=== PATIENT | female | born 1955 | race Caucasian/White ===

== ENCOUNTER 2017-05-29 16:01 | Inpatient (IN) | payer MEDICARE, MEDICAID ==
[~2017-05-29] VITALS: Ht 152.4 cm; Wt 173.0 kg
[~2017-05-29 16:01] MED LIST: AMLO1TAB53 PO; ATOR80TA PO; BUPR150T6 PO; COR3.125T PO; FERR325T28 PO; FLUO15OI15 TP; HYDR-3972 PO; INSU100C4 SQ; LANTUS SUBCUT; LEVO200T43 PO; OMEP-84 PO
[2017-05-29] MEDS ORDERED: methylPREDNISolone sod succ 125mg/2ml vial IV ONE (16:40)
[2017-05-29] MEDS ORDERED: normal saline 1000ML IV soln IVB ONE (16:40)
[2017-05-29] MEDS ORDERED: albuterol 2.5 MG/3 ML nebule CONTNEB PRN (16:40)
[2017-05-29 17:13] LABS: BASOPHILS % (AUTO) 0.2 % (0-1); EOSINOPHILS # (AUTO) 0.3 X10'3 (0-0.9); EOSINOPHILS % (AUTO) 3.4 % (0-6); HEMATOCRIT 32.4 % (35.0-45.0); HEMOGLOBIN 10.4 g/dl (12.0-16.0); LYMPHOCYTES # (AUTO) 0.9 X10'3 (1.1-4.8); LYMPHOCYTES % (AUTO) 9.3 % (21-51); MEAN CORPUSCULAR HGB CONC 32.2 % (33.0-36.5); MEAN CORPUSCULAR VOLUME 86.9 FL (78-98); MONOCYTES # (AUTO) 0.5 X10'3 (0-0.9); MONOCYTES % (AUTO) 5.2 % (2-12); NEUTROPHILS # (AUTO) 7.7 X10'3 (1.8-7.7); NEUTROPHILS % (AUTO) 81.9 % (42-75); PLATELET COUNT 240 X10'3 (140-440); RED BLOOD COUNT 3.73 X10'6 (4.20-5.60); RED CELL DISTRIBUTION WIDTH 17.2 % (11.5-14.5); WHITE BLOOD COUNT 9.5 X10'3 (4.5-11.0)
[2017-05-29 17:26] LABS: ABG BASE EXCESS -0.4 mmol/L (-2.0-3.0); ABG HCO3 26.6 mmol/L (22.0-26.0); ABG OXYGEN SATURATION 93.5 % (95-98); ABG PCO2 (T) 54.8 mmHg (32.0-45.0); ABG PH (T) 7.304 (7.350-7.450); ABG PO2 (T) 75.2 mmHg (83-108); ALLEN'S TEST Positive; FLOW 3 L/min; FMetHb 0.3 % (0.3-1.12); FO2Hb 92.3 % (94-100); TOTAL HEMOGLOBIN 10.9 G/dl (12.0-16.0)
[2017-05-29 17:38] LABS: ALANINE AMINOTRANSFERASE 24 U/L (12-78); ALBUMIN 2.8 G/DL (3.4-5.0); ALBUMIN/GLOBULIN RATIO 0.5 (1.1-1.5); ALKALINE PHOSPHATASE 195 IU/L (46-116); ANION GAP 8 (8-16); ASPARTATE AMINO TRANSFERASE 13 U/L (10-37); BILIRUBIN,TOTAL 0.2 MG/DL (0.1-1.0); BLOOD UREA NITROGEN 57 MG/DL (7-18); BUN/CREATININE RATIO 17.3 (6.6-38.0); CALCIUM 9.2 MG/DL (8.5-10.1); CHLORIDE 106 MMOL/L (99-107); GLUCOSE 62 MG/DL (70-104); POTASSIUM 4.2 MMOL/L (3.5-5.1); SODIUM 144 MMOL/L (135-145); TOTAL PROTEIN 8.7 G/DL (6.4-8.2); eGFR 14 ML/MIN
[2017-05-29] MEDS ORDERED: MESSAGE TO PHARMACY PO ONE (18:25)
[2017-05-29] MEDS ORDERED: magnesium Cl slow-release 64mg tablet PO PRN (18:25)
[2017-05-29] MEDS ORDERED: dextrose 50%-water 50ml dispensing syringe IV PRN ×2 (18:25)
[2017-05-29] MEDS ORDERED: fluocinonide 0.05% 15gm ointment TP PRN (18:25)
[2017-05-29] MEDS ORDERED: potassium Cl 20 mEq SR tablet PO PRN ×2 (18:25)
[2017-05-29] MEDS ORDERED: magnesium 4gm in 100ml NS 100 ML IV PRN (18:25)
[2017-05-29] MEDS ORDERED: furosemide 10 MG/1 ML 10ml inj IV ONE (18:25)
[2017-05-29] MEDS ORDERED: glucagon, human recombinant 1mg kit SUBCUT PRN (18:25)
[2017-05-29] MEDS ORDERED: acetaminophen 325mg tablet PO PRN ×2 (18:25)
[2017-05-29] MEDS ORDERED: morphine sulfate 8 MG/ML SYRINGE IV PRN ×2 (18:25)
[2017-05-29] MEDS ORDERED: mag hydrox/Alum hydrox/simeth 30ml oral suspension PO PRN (18:25)
[2017-05-29] MEDS ORDERED: metoclopramide 5 mg/ml inj IV PRN (18:25)
[2017-05-29] MEDS ORDERED: HYDROmorphone 1 mg/ml syringe IV PRN (18:25)
[2017-05-29] MEDS ORDERED: potassium Cl 40MEQ/NS 500ml 500 ML IV PRN ×2 (18:25)
[2017-05-29] MEDS ORDERED: dextrose ORAL solution 15 GM/59 ML bottle PO PRN ×2 (18:25)
[2017-05-29] MEDS ORDERED: magnesium 2GM in 50ml NS 50 ML IV PRN (18:25)
[2017-05-29] MEDS ORDERED: ondansetron/PF 4mg/2ml inj IV PRN (18:25)
[2017-05-29] MEDS: methylPREDNISolone sod succ 125mg/2ml vial IV SCH (20:21)
[2017-05-29] MEDS: carVEDilol 3.125mg tablet PO SCH (20:24)
[2017-05-29] MEDS: heparin, porcine 5000 units/ml vial SQ SCH (20:27)
[2017-05-29] MEDS: docusate sod 100mg capsule PO SCH (20:32)
[2017-05-29] MEDS ORDERED: temazepam 15mg capsule PO PRN (21:00)
[2017-05-29] MEDS: Insulin Detemir pen SQ SCH (21:00)
[2017-05-29] MEDS ORDERED: insulin glargine (Lantus) pen - multi-dose SQ SCH (21:00)
[2017-05-29] MEDS: atorvastatin 20mg tablet PO SCH (21:24)
[2017-05-29 23:00] VITALS: BP 158/69
[2017-05-30 03:00] VITALS: BP 175/72
[2017-05-30] MEDS: cloNIDine 0.1 mg tablet PO SCH ×2 (03:49→22:27)
[2017-05-30] MEDS: methylPREDNISolone sod succ 125mg/2ml vial IV SCH ×4 (03:49→19:10)
[2017-05-30 06:00] VITALS: BP 160/61
[2017-05-30 06:33] LABS: BASOPHILS % (AUTO) 0 % (0-1); EOSINOPHILS % (AUTO) 0 % (0-6); HEMATOCRIT 29.7 % (35.0-45.0); HEMOGLOBIN 9.3 g/dl (12.0-16.0); LYMPHOCYTES # (AUTO) 0.3 X10'3 (1.1-4.8); LYMPHOCYTES % (AUTO) 4.7 % (21-51); MEAN CORPUSCULAR HEMOGLOBIN 27.4 PG (27.0-31.0); MEAN CORPUSCULAR HGB CONC 31.4 % (33.0-36.5); MEAN CORPUSCULAR VOLUME 87.3 FL (78-98); MEAN PLATELET VOLUME 8.4 FL (7.4-10.4); MONOCYTES % (AUTO) 0.2 % (2-12); NEUTROPHILS % (AUTO) 95.1 % (42-75); PLATELET COUNT 210 X10'3 (140-440); RED BLOOD COUNT 3.41 X10'6 (4.20-5.60); RED CELL DISTRIBUTION WIDTH 17.2 % (11.5-14.5); WHITE BLOOD COUNT 7.3 X10'3 (4.5-11.0)
[2017-05-30 07:01] LABS: ALBUMIN 2.3 G/DL (3.4-5.0); ANION GAP 9 (8-16); BLOOD UREA NITROGEN 57 MG/DL (7-18); BUN/CREATININE RATIO 17.5 (6.6-38.0); CALCIUM 8.7 MG/DL (8.5-10.1); CHLORIDE 109 MMOL/L (99-107); CREATININE 3.25 MG/DL (0.40-0.90); GLUCOSE 181 MG/DL (70-104); MAGNESIUM 2.2 MG/DL (1.5-2.4); POTASSIUM 4.8 MMOL/L (3.5-5.1); SODIUM 146 MMOL/L (135-145); TOTAL CARBON DIOXIDE 27.8 MMOL/L (24-32); eGFR 15 ML/MIN
[2017-05-30] MEDS: buPROPion SR 150mg tablet PO SCH (07:20)
[2017-05-30] MEDS: levoTHYROXINE 100mcg tablet PO SCH (07:20)
[2017-05-30] MEDS: docusate sod 100mg capsule PO SCH ×2 (07:20→19:10)
[2017-05-30] MEDS: amLODIPine 5mg tablet PO SCH (07:20)
[2017-05-30] MEDS: HYDROchlorothiazide 25mg tablet PO SCH (07:21)
[2017-05-30] MEDS: pantoprazole 40mg Tablet.DR PO SCH (07:22)
[2017-05-30] MEDS: carVEDilol 3.125mg tablet PO SCH ×2 (07:22→19:10)
[2017-05-30] MEDS: ferrous sulfate 325mg tablet PO SCH (07:22)
[2017-05-30] MEDS: heparin, porcine 5000 units/ml vial SQ SCH ×2 (07:23→19:08)
[2017-05-30] MEDS: K and/or MAG REPLACEMENT MC SCH (07:23)
[2017-05-30] MEDS ORDERED: INSULIN ASPART 30 UNIT SQ SCH (08:00)
[2017-05-30] MEDS ORDERED: non-formulary drug (Amlodipine/Valsartan/Hctz (Exforge Hct 10-320-25 Mg Tab) 1 EACH) PO SCH (08:00)
[2017-05-30 11:00] VITALS: BP 170/65
[2017-05-30] MEDS: insulin Lispro (HumaLOG) vial - multi-dose SQ SCH ×3 (13:08→22:27)
[2017-05-30 15:00] VITALS: BP 163/63
[2017-05-30 19:00] VITALS: BP 167/62
[2017-05-30] MEDS: albuterol 2.5 MG/3 ML nebule NEB PRN (19:49)
[2017-05-30] MEDS: atorvastatin 20mg tablet PO SCH (22:17)
[2017-05-30] MEDS: Insulin Detemir pen SQ SCH (22:24)
[2017-05-30 23:00] VITALS: BP 167/67
[2017-05-31 03:00] VITALS: BP 166/71
[2017-05-31] MEDS: methylPREDNISolone sod succ 125mg/2ml vial IV SCH ×4 (03:06→19:48)
[2017-05-31 06:04] LABS: BASOPHILS % (AUTO) 0 % (0-1); EOSINOPHILS % (AUTO) 0.6 % (0-6); HEMATOCRIT 28.3 % (35.0-45.0); LYMPHOCYTES # (AUTO) 0.3 X10'3 (1.1-4.8); LYMPHOCYTES % (AUTO) 7.4 % (21-51); MEAN CORPUSCULAR HEMOGLOBIN 27.7 PG (27.0-31.0); MEAN CORPUSCULAR HGB CONC 31.7 % (33.0-36.5); MEAN CORPUSCULAR VOLUME 87.5 FL (78-98); MEAN PLATELET VOLUME 8.5 FL (7.4-10.4); MONOCYTES # (AUTO) 0.1 X10'3 (0-0.9); MONOCYTES % (AUTO) 2.9 % (2-12); NEUTROPHILS # (AUTO) 4.1 X10'3 (1.8-7.7); NEUTROPHILS % (AUTO) 89.1 % (42-75); PLATELET COUNT 195 X10'3 (140-440); RED BLOOD COUNT 3.24 X10'6 (4.20-5.60); RED CELL DISTRIBUTION WIDTH 17.1 % (11.5-14.5); WHITE BLOOD COUNT 4.6 X10'3 (4.5-11.0)
[2017-05-31 06:21] LABS: ALBUMIN 2.2 G/DL (3.4-5.0); ANION GAP 5 (8-16); BLOOD UREA NITROGEN 62 MG/DL (7-18); BUN/CREATININE RATIO 19.1 (6.6-38.0); CALCIUM 8.3 MG/DL (8.5-10.1); CHLORIDE 109 MMOL/L (99-107); CREATININE 3.24 MG/DL (0.40-0.90); GLUCOSE 256 MG/DL (70-104); MAGNESIUM 2.3 MG/DL (1.5-2.4); POTASSIUM 4.7 MMOL/L (3.5-5.1); SODIUM 144 MMOL/L (135-145); TOTAL CARBON DIOXIDE 30.5 MMOL/L (24-32); eGFR 15 ML/MIN
[2017-05-31 07:00] VITALS: BP 165/70
[2017-05-31] MEDS: cloNIDine 0.1 mg tablet PO SCH ×2 (07:07→19:48)
[2017-05-31] MEDS: carVEDilol 3.125mg tablet PO SCH ×2 (07:07→20:00)
[2017-05-31] MEDS: heparin, porcine 5000 units/ml vial SQ SCH ×2 (07:20→19:48)
[2017-05-31] MEDS: docusate sod 100mg capsule PO SCH ×2 (07:20→19:48)
[2017-05-31] MEDS: amLODIPine 5mg tablet PO SCH (07:21)
[2017-05-31] MEDS: HYDROchlorothiazide 25mg tablet PO SCH (07:21)
[2017-05-31] MEDS: ferrous sulfate 325mg tablet PO SCH (07:30)
[2017-05-31] MEDS: pantoprazole 40mg Tablet.DR PO SCH (07:30)
[2017-05-31] MEDS: buPROPion SR 150mg tablet PO SCH (07:30)
[2017-05-31] MEDS: HYDROcodone/acetaminophen 5mg/325mg tablet PO PRN ×3 (07:31→21:03)
[2017-05-31] MEDS: levoTHYROXINE 100mcg tablet PO SCH (07:31)
[2017-05-31] MEDS: K and/or MAG REPLACEMENT MC SCH (08:00)
[2017-05-31] MEDS: insulin Lispro (HumaLOG) vial - multi-dose SQ SCH ×3 (09:02→18:45)
[2017-05-31 11:00] VITALS: BP 179/72
[2017-05-31 15:00] VITALS: BP 127/61
[2017-05-31 19:00] VITALS: BP 166/68
[2017-05-31] MEDS: albuterol 2.5 MG/3 ML nebule NEB PRN (20:40)
[2017-05-31] MEDS ORDERED: guaiFENesin/DM oral syrup 5 ML CUP PO PRN (20:55)
[2017-05-31] MEDS: atorvastatin 20mg tablet PO SCH (20:58)
[2017-05-31] MEDS: Insulin Detemir pen SQ SCH (21:02)
[2017-05-31 23:00] VITALS: BP 160/56
[2017-06-01] MEDS: HYDROcodone/acetaminophen 5mg/325mg tablet PO PRN (00:07)
[2017-06-01] MEDS: methylPREDNISolone sod succ 125mg/2ml vial IV SCH ×4 (01:42→19:28)
[2017-06-01 03:00] VITALS: BP 143/54
[2017-06-01 06:00] VITALS: BP 172/71
[2017-06-01 06:09] LABS: BASOPHILS % (AUTO) 0 % (0-1); EOSINOPHILS # (AUTO) 0.1 X10'3 (0-0.9); EOSINOPHILS % (AUTO) 1.2 % (0-6); HEMOGLOBIN 8.8 g/dl (12.0-16.0); LYMPHOCYTES # (AUTO) 0.3 X10'3 (1.1-4.8); LYMPHOCYTES % (AUTO) 4.9 % (21-51); MEAN CORPUSCULAR HEMOGLOBIN 27.4 PG (27.0-31.0); MEAN CORPUSCULAR HGB CONC 31.6 % (33.0-36.5); MEAN CORPUSCULAR VOLUME 86.8 FL (78-98); MEAN PLATELET VOLUME 8.5 FL (7.4-10.4); MONOCYTES # (AUTO) 0.1 X10'3 (0-0.9); MONOCYTES % (AUTO) 1.3 % (2-12); NEUTROPHILS # (AUTO) 5.5 X10'3 (1.8-7.7); NEUTROPHILS % (AUTO) 92.6 % (42-75); PLATELET COUNT 192 X10'3 (140-440); RED BLOOD COUNT 3.22 X10'6 (4.20-5.60); RED CELL DISTRIBUTION WIDTH 17.2 % (11.5-14.5); WHITE BLOOD COUNT 5.9 X10'3 (4.5-11.0)
[2017-06-01 06:32] LABS: ALBUMIN 2.2 G/DL (3.4-5.0); ANION GAP 7 (8-16); BLOOD UREA NITROGEN 71 MG/DL (7-18); BUN/CREATININE RATIO 23.6 (6.6-38.0); CALCIUM 8.7 MG/DL (8.5-10.1); CHLORIDE 109 MMOL/L (99-107); CREATININE 3.01 MG/DL (0.40-0.90); GLUCOSE 240 MG/DL (70-104); MAGNESIUM 2.6 MG/DL (1.5-2.4); POTASSIUM 5.1 MMOL/L (3.5-5.1); SODIUM 145 MMOL/L (135-145); eGFR 16 ML/MIN
[2017-06-01] MEDS: carVEDilol 3.125mg tablet PO SCH ×2 (08:00→19:30)
[2017-06-01] MEDS: K and/or MAG REPLACEMENT MC SCH (08:00)
[2017-06-01] MEDS: insulin Lispro (HumaLOG) vial - multi-dose SQ SCH ×4 (08:49→21:02)
[2017-06-01] MEDS: mineral oil/petrolatum, white cream 113gm jar TP SCH ×2 (08:51→20:00)
[2017-06-01] MEDS: heparin, porcine 5000 units/ml vial SQ SCH ×2 (08:51→19:28)
[2017-06-01] MEDS: amLODIPine 5mg tablet PO SCH (08:52)
[2017-06-01] MEDS: docusate sod 100mg capsule PO SCH ×2 (08:53→19:28)
[2017-06-01] MEDS: ferrous sulfate 325mg tablet PO SCH (08:53)
[2017-06-01] MEDS: cloNIDine 0.1 mg tablet PO SCH ×2 (08:53→19:29)
[2017-06-01] MEDS: buPROPion SR 150mg tablet PO SCH (08:53)
[2017-06-01] MEDS: levoTHYROXINE 100mcg tablet PO SCH (08:54)
[2017-06-01] MEDS: HYDROchlorothiazide 25mg tablet PO SCH (08:58)
[2017-06-01] MEDS: HYDROcodone/acetaminophen 10/325mg tab PO PRN ×2 (08:58→19:29)
[2017-06-01] MEDS: pantoprazole 40mg Tablet.DR PO SCH (09:00)
[2017-06-01 11:00] VITALS: BP 158/69
[2017-06-01 15:00] VITALS: BP 183/74
[2017-06-01 19:00] VITALS: BP 174/86
[2017-06-01] MEDS: magnesium hydroxide 30ml (MOM) UD suspension PO PRN (19:29)
[2017-06-01] MEDS: atorvastatin 20mg tablet PO SCH (20:59)
[2017-06-01] MEDS: Insulin Detemir pen SQ SCH (21:03)
[2017-06-01 23:00] VITALS: BP 153/74
[2017-06-02] MEDS: methylPREDNISolone sod succ 125mg/2ml vial IV SCH ×4 (01:48→21:29)
[2017-06-02 03:00] VITALS: BP 128/60
[2017-06-02 05:51] LABS: BASOPHILS % (AUTO) 0.1 % (0-1); EOSINOPHILS # (AUTO) 0.1 X10'3 (0-0.9); EOSINOPHILS % (AUTO) 1.2 % (0-6); HEMATOCRIT 29.8 % (35.0-45.0); HEMOGLOBIN 9.5 g/dl (12.0-16.0); LYMPHOCYTES # (AUTO) 0.2 X10'3 (1.1-4.8); LYMPHOCYTES % (AUTO) 3.8 % (21-51); MEAN CORPUSCULAR HEMOGLOBIN 27.7 PG (27.0-31.0); MEAN CORPUSCULAR HGB CONC 31.9 % (33.0-36.5); MEAN CORPUSCULAR VOLUME 86.9 FL (78-98); MEAN PLATELET VOLUME 8.6 FL (7.4-10.4); MONOCYTES # (AUTO) 0.1 X10'3 (0-0.9); NEUTROPHILS # (AUTO) 5.3 X10'3 (1.8-7.7); NEUTROPHILS % (AUTO) 93.9 % (42-75); PLATELET COUNT 186 X10'3 (140-440); RED BLOOD COUNT 3.42 X10'6 (4.20-5.60); RED CELL DISTRIBUTION WIDTH 16.9 % (11.5-14.5); WHITE BLOOD COUNT 5.7 X10'3 (4.5-11.0)
[2017-06-02 06:00] VITALS: BP 181/79
[2017-06-02 06:23] LABS: ALBUMIN 2.2 G/DL (3.4-5.0); ANION GAP 6 (8-16); BLOOD UREA NITROGEN 79 MG/DL (7-18); BUN/CREATININE RATIO 26.3 (6.6-38.0); CALCIUM 8.6 MG/DL (8.5-10.1); CHLORIDE 108 MMOL/L (99-107); GLUCOSE 239 MG/DL (70-104); MAGNESIUM 2.8 MG/DL (1.5-2.4); POTASSIUM 5.2 MMOL/L (3.5-5.1); SODIUM 144 MMOL/L (135-145); TOTAL CARBON DIOXIDE 29.9 MMOL/L (24-32); eGFR 16 ML/MIN
[2017-06-02] MEDS: levoTHYROXINE 100mcg tablet PO SCH (07:40)
[2017-06-02] MEDS: amLODIPine 5mg tablet PO SCH (07:41)
[2017-06-02] MEDS: HYDROchlorothiazide 25mg tablet PO SCH (07:41)
[2017-06-02] MEDS: ferrous sulfate 325mg tablet PO SCH (07:42)
[2017-06-02] MEDS: docusate sod 100mg capsule PO SCH ×2 (07:42→21:31)
[2017-06-02] MEDS: pantoprazole 40mg Tablet.DR PO SCH (07:42)
[2017-06-02] MEDS: buPROPion SR 150mg tablet PO SCH (07:43)
[2017-06-02] MEDS: heparin, porcine 5000 units/ml vial SQ SCH ×2 (07:43→21:31)
[2017-06-02] MEDS: cloNIDine 0.1 mg tablet PO SCH ×2 (07:44→21:30)
[2017-06-02] MEDS: K and/or MAG REPLACEMENT MC SCH (08:00)
[2017-06-02] MEDS: mineral oil/petrolatum, white cream 113gm jar TP SCH ×2 (08:00→21:31)
[2017-06-02] MEDS: carVEDilol 3.125mg tablet PO SCH ×2 (08:00→21:31)
[2017-06-02] MEDS: insulin Lispro (HumaLOG) vial - multi-dose SQ SCH ×3 (09:47→19:25)
[2017-06-02 11:00] VITALS: BP 153/71
[2017-06-02 15:00] VITALS: BP 199/76
[2017-06-02 18:00] VITALS: BP 166/67
[2017-06-02] MEDS: atorvastatin 20mg tablet PO SCH (21:31)
[2017-06-02] MEDS: Insulin Detemir pen SQ SCH (21:42)
[2017-06-02 22:00] VITALS: BP 175/73
[2017-06-02] MEDS: HYDROcodone/acetaminophen 5mg/325mg tablet PO PRN (22:42)
[2017-06-02] MEDS: hydrALAZINE 20mg/ml inj. IV PRN (22:42)
[2017-06-03] MEDS: methylPREDNISolone sod succ 125mg/2ml vial IV SCH ×3 (01:59→15:39)
[2017-06-03 02:00] VITALS: BP 135/60
[2017-06-03 04:57] LABS: BASOPHILS % (AUTO) 0.1 % (0-1); EOSINOPHILS % (AUTO) 0.8 % (0-6); HEMATOCRIT 28.8 % (35.0-45.0); HEMOGLOBIN 9.1 g/dl (12.0-16.0); LYMPHOCYTES # (AUTO) 0.2 X10'3 (1.1-4.8); LYMPHOCYTES % (AUTO) 2.9 % (21-51); MEAN CORPUSCULAR HEMOGLOBIN 27.6 PG (27.0-31.0); MEAN CORPUSCULAR HGB CONC 31.7 % (33.0-36.5); MEAN CORPUSCULAR VOLUME 87.3 FL (78-98); MEAN PLATELET VOLUME 8.8 FL (7.4-10.4); MONOCYTES % (AUTO) 0.7 % (2-12); NEUTROPHILS # (AUTO) 5.7 X10'3 (1.8-7.7); NEUTROPHILS % (AUTO) 95.5 % (42-75); PLATELET COUNT 179 X10'3 (140-440); RED CELL DISTRIBUTION WIDTH 17.4 % (11.5-14.5)
[2017-06-03 05:11] LABS: ALBUMIN 2.1 G/DL (3.4-5.0); ANION GAP 7 (8-16); BLOOD UREA NITROGEN 85 MG/DL (7-18); BUN/CREATININE RATIO 29.7 (6.6-38.0); CALCIUM 8.5 MG/DL (8.5-10.1); CHLORIDE 108 MMOL/L (99-107); CREATININE 2.86 MG/DL (0.40-0.90); GLUCOSE 238 MG/DL (70-104); POTASSIUM 5.1 MMOL/L (3.5-5.1); SODIUM 145 MMOL/L (135-145); eGFR 17 ML/MIN
[2017-06-03 06:00] VITALS: BP 147/65
[2017-06-03] MEDS: amLODIPine 5mg tablet PO SCH (07:42)
[2017-06-03] MEDS: HYDROchlorothiazide 25mg tablet PO SCH (07:42)
[2017-06-03] MEDS: ferrous sulfate 325mg tablet PO SCH (07:43)
[2017-06-03] MEDS: buPROPion SR 150mg tablet PO SCH (07:43)
[2017-06-03] MEDS: pantoprazole 40mg Tablet.DR PO SCH (07:43)
[2017-06-03] MEDS: cloNIDine 0.1 mg tablet PO SCH ×2 (07:44→19:26)
[2017-06-03] MEDS: levoTHYROXINE 100mcg tablet PO SCH (07:44)
[2017-06-03] MEDS: docusate sod 100mg capsule PO SCH ×2 (07:45→19:26)
[2017-06-03] MEDS: carVEDilol 3.125mg tablet PO SCH ×2 (07:45→19:26)
[2017-06-03] MEDS: heparin, porcine 5000 units/ml vial SQ SCH ×2 (07:46→19:26)
[2017-06-03] MEDS: mineral oil/petrolatum, white cream 113gm jar TP SCH ×2 (07:47→19:29)
[2017-06-03] MEDS: K and/or MAG REPLACEMENT MC SCH (08:00)
[2017-06-03] MEDS: insulin Lispro (HumaLOG) vial - multi-dose SQ SCH ×4 (08:22→21:28)
[2017-06-03 11:00] VITALS: BP 149/80
[2017-06-03 15:30] VITALS: BP 190/84
[2017-06-03] MEDS: hydrALAZINE 20mg/ml inj. IV PRN (16:34)
[2017-06-03 18:00] VITALS: BP 177/68
[2017-06-03] MEDS ORDERED: insulin glargine (Lantus) pen - multi-dose SQ ONE (21:00)
[2017-06-03] MEDS: atorvastatin 20mg tablet PO SCH (21:30)
[2017-06-03] MEDS: insulin glargine (Lantus) pen - multi-dose SQ SCH (21:30)
[2017-06-03 22:00] VITALS: BP 169/58
[2017-06-04] VITALS (7 sets, daily range): BP systolic 104–182; BP diastolic 51–78
[2017-06-04] MEDS: methylPREDNISolone sod succ 125mg/2ml vial IV SCH ×3 (00:08→14:58)
[2017-06-04 05:34] LABS: BASOPHILS % (AUTO) 0 % (0-1); EOSINOPHILS # (AUTO) 0.1 X10'3 (0-0.9); EOSINOPHILS % (AUTO) 1.1 % (0-6); HEMATOCRIT 30.4 % (35.0-45.0); HEMOGLOBIN 9.7 g/dl (12.0-16.0); LYMPHOCYTES # (AUTO) 0.2 X10'3 (1.1-4.8); MEAN CORPUSCULAR HEMOGLOBIN 27.8 PG (27.0-31.0); MEAN CORPUSCULAR HGB CONC 31.9 % (33.0-36.5); MEAN CORPUSCULAR VOLUME 87.2 FL (78-98); MONOCYTES # (AUTO) 0.1 X10'3 (0-0.9); MONOCYTES % (AUTO) 1.7 % (2-12); NEUTROPHILS # (AUTO) 6.2 X10'3 (1.8-7.7); NEUTROPHILS % (AUTO) 94.2 % (42-75); PLATELET COUNT 164 X10'3 (140-440); RED BLOOD COUNT 3.48 X10'6 (4.20-5.60); RED CELL DISTRIBUTION WIDTH 17.2 % (11.5-14.5); WHITE BLOOD COUNT 6.6 X10'3 (4.5-11.0)
[2017-06-04 06:13] LABS: ALANINE AMINOTRANSFERASE 20 U/L (12-78); ALBUMIN 2.2 G/DL (3.4-5.0); ALBUMIN/GLOBULIN RATIO 0.5 (1.1-1.5); ALKALINE PHOSPHATASE 109 IU/L (46-116); ANION GAP 5 (8-16); ASPARTATE AMINO TRANSFERASE 8 U/L (10-37); BILIRUBIN,TOTAL 0.3 MG/DL (0.1-1.0); BLOOD UREA NITROGEN 94 MG/DL (7-18); CALCIUM 8.6 MG/DL (8.5-10.1); CHLORIDE 110 MMOL/L (99-107); CREATININE 2.94 MG/DL (0.40-0.90); GLUCOSE 171 MG/DL (70-104); SODIUM 146 MMOL/L (135-145); TOTAL CARBON DIOXIDE 31.1 MMOL/L (24-32); TOTAL PROTEIN 6.3 G/DL (6.4-8.2); eGFR 16 ML/MIN
[2017-06-04] MEDS: buPROPion SR 150mg tablet PO SCH (07:54)
[2017-06-04] MEDS: levoTHYROXINE 100mcg tablet PO SCH (07:54)
[2017-06-04] MEDS: docusate sod 100mg capsule PO SCH ×2 (07:55→19:40)
[2017-06-04] MEDS: ferrous sulfate 325mg tablet PO SCH (07:55)
[2017-06-04] MEDS: carVEDilol 3.125mg tablet PO SCH ×2 (07:56→19:40)
[2017-06-04] MEDS: amLODIPine 5mg tablet PO SCH (07:56)
[2017-06-04] MEDS: HYDROchlorothiazide 25mg tablet PO SCH (07:57)
[2017-06-04] MEDS: pantoprazole 40mg Tablet.DR PO SCH (07:57)
[2017-06-04] MEDS: cloNIDine 0.1 mg tablet PO SCH ×2 (07:57→19:40)
[2017-06-04] MEDS: heparin, porcine 5000 units/ml vial SQ SCH ×2 (07:58→19:40)
[2017-06-04] MEDS: K and/or MAG REPLACEMENT MC SCH (08:00)
[2017-06-04] MEDS: mineral oil/petrolatum, white cream 113gm jar TP SCH ×2 (08:06→19:40)
[2017-06-04] MEDS: HYDROcodone/acetaminophen 5mg/325mg tablet PO PRN ×2 (09:59→14:58)
[2017-06-04] MEDS: insulin Lispro (HumaLOG) vial - multi-dose SQ SCH ×3 (10:02→19:02)
[2017-06-04] MEDS ORDERED: PRED20TA PO (12:45)
[2017-06-04] MEDS: atorvastatin 20mg tablet PO SCH (20:44)
[2017-06-04] MEDS: insulin glargine (Lantus) pen - multi-dose SQ SCH (20:48)
[2017-06-04] MEDS: hydrALAZINE 20mg/ml inj. IV PRN (23:36)
[2017-06-05] MEDS: magnesium hydroxide 30ml (MOM) UD suspension PO PRN (01:02)
[2017-06-05 02:00] VITALS: BP 147/58
[2017-06-05 06:14] LABS: BASOPHILS % (AUTO) 0 % (0-1); EOSINOPHILS # (AUTO) 0.1 X10'3 (0-0.9); EOSINOPHILS % (AUTO) 1.4 % (0-6); HEMATOCRIT 31.1 % (35.0-45.0); HEMOGLOBIN 9.9 g/dl (12.0-16.0); LYMPHOCYTES # (AUTO) 0.4 X10'3 (1.1-4.8); LYMPHOCYTES % (AUTO) 5.7 % (21-51); MEAN CORPUSCULAR HEMOGLOBIN 27.8 PG (27.0-31.0); MEAN CORPUSCULAR HGB CONC 31.8 % (33.0-36.5); MEAN CORPUSCULAR VOLUME 87.5 FL (78-98); MEAN PLATELET VOLUME 9.1 FL (7.4-10.4); MONOCYTES # (AUTO) 0.4 X10'3 (0-0.9); MONOCYTES % (AUTO) 5.6 % (2-12); NEUTROPHILS # (AUTO) 6.3 X10'3 (1.8-7.7); NEUTROPHILS % (AUTO) 87.3 % (42-75); PLATELET COUNT 169 X10'3 (140-440); RED BLOOD COUNT 3.55 X10'6 (4.20-5.60); RED CELL DISTRIBUTION WIDTH 17.6 % (11.5-14.5); WHITE BLOOD COUNT 7.2 X10'3 (4.5-11.0)
[2017-06-05 06:28] LABS: ALANINE AMINOTRANSFERASE 24 U/L (12-78); ALBUMIN 2.2 G/DL (3.4-5.0); ALBUMIN/GLOBULIN RATIO 0.6 (1.1-1.5); ALKALINE PHOSPHATASE 109 IU/L (46-116); ANION GAP 6 (8-16); ASPARTATE AMINO TRANSFERASE 13 U/L (10-37); BILIRUBIN,TOTAL 0.3 MG/DL (0.1-1.0); BLOOD UREA NITROGEN 96 MG/DL (7-18); CALCIUM 8.7 MG/DL (8.5-10.1); CHLORIDE 109 MMOL/L (99-107); CREATININE 2.82 MG/DL (0.40-0.90); GLUCOSE 172 MG/DL (70-104); MAGNESIUM 3.1 MG/DL (1.5-2.4); POTASSIUM 5.3 MMOL/L (3.5-5.1); SODIUM 145 MMOL/L (135-145); TOTAL CARBON DIOXIDE 30.1 MMOL/L (24-32); TOTAL PROTEIN 6.2 G/DL (6.4-8.2); eGFR 17 ML/MIN
[2017-06-05 07:05] VITALS: BP 165/64
[2017-06-05] MEDS ORDERED: methylPREDNISolone sod succ 125mg/2ml vial IV SCH (08:00)
[2017-06-05] MEDS: K and/or MAG REPLACEMENT MC SCH (08:00)
[2017-06-05] MEDS: docusate sod 100mg capsule PO SCH (08:00)
[2017-06-05] MEDS: insulin Lispro (HumaLOG) vial - multi-dose SQ SCH ×2 (09:27→13:24)
[2017-06-05] MEDS: carVEDilol 3.125mg tablet PO SCH (09:31)
[2017-06-05] MEDS: buPROPion SR 150mg tablet PO SCH (09:31)
[2017-06-05] MEDS: cloNIDine 0.1 mg tablet PO SCH (09:31)
[2017-06-05] MEDS: amLODIPine 5mg tablet PO SCH (09:42)
[2017-06-05] MEDS: HYDROchlorothiazide 25mg tablet PO SCH (09:42)
[2017-06-05] MEDS: ferrous sulfate 325mg tablet PO SCH (09:43)
[2017-06-05] MEDS: HYDROcodone/acetaminophen 5mg/325mg tablet PO PRN (09:43)
[2017-06-05] MEDS: heparin, porcine 5000 units/ml vial SQ SCH (09:43)
[2017-06-05] MEDS: mineral oil/petrolatum, white cream 113gm jar TP SCH (09:45)
[2017-06-05] MEDS: pantoprazole 40mg Tablet.DR PO SCH (09:49)
[2017-06-05] MEDS: levoTHYROXINE 100mcg tablet PO SCH (09:49)
[2017-06-05 11:00] VITALS: BP 203/81
[2017-06-05] MEDS: hydrALAZINE 20mg/ml inj. IV PRN (13:27)
[2017-06-05 15:00] VITALS: BP 193/76
== END 2017-06-05 16:00 | DRG 291 ==
LOC: ER 16:02 → ED HOLD 18:29 → PCU 3S 21:54
PROVIDERS: ADMIT Internal Medicine; ATTEND Family Medicine
PROC: 5A09357 Assistance with Respiratory Ventilation, Less than 24 Consecutive Hours, Continuous Positive Airway Pressure (ICD-10-PCS; principal; 2017-05-30)
PROC: 5A09357 Assistance with Respiratory Ventilation, Less than 24 Consecutive Hours, Continuous Positive Airway Pressure (ICD-10-PCS; 2017-05-31)
DX: I13.0 Hypertensive heart and chronic kidney disease with heart failure and stage 1 through stage 4 chronic kidney disease, or unspecified chronic kidney disease (principal); I50.43 Acute on chronic combined systolic (congestive) and diastolic (congestive) heart failure; J96.01 Acute respiratory failure with hypoxia; E43 Unspecified severe protein-calorie malnutrition; E11.22 Type 2 diabetes mellitus with diabetic chronic kidney disease; N17.9 Acute kidney failure, unspecified; L03.115 Cellulitis of right lower limb; E66.01 Morbid (severe) obesity due to excess calories; N18.4 Chronic kidney disease, stage 4 (severe); I42.0 Dilated cardiomyopathy; G83.9 Paralytic syndrome, unspecified; J44.1 Chronic obstructive pulmonary disease with (acute) exacerbation; Z68.45 Body mass index [BMI] 70 or greater, adult; D63.8 Anemia in other chronic diseases classified elsewhere; E03.9 Hypothyroidism, unspecified; F32.9 Major depressive disorder, single episode, unspecified; F41.9 Anxiety disorder, unspecified; G47.33 Obstructive sleep apnea (adult) (pediatric); I89.0 Lymphedema, not elsewhere classified; Z99.81 Dependence on supplemental oxygen; Z90.49 Acquired absence of other specified parts of digestive tract; Z79.4 Long term (current) use of insulin; Z79.899 Other long term (current) drug therapy; Z88.8 Allergy status to other drugs, medicaments and biological substances; Z85.850 Personal history of malignant neoplasm of thyroid; Z80.0 Family history of malignant neoplasm of digestive organs
CPT/HCPCS: 36415; 36600; 71010; 80048; 80053; 82803; 82948; 83036; 83605; 83735; 83880; 84484; 85018; 85025; 87040; 87070; 93306; 94640; 94660; 94760; 96374; 97110; 97116; 97161; 97530; 99285; A4620; A4649; A6213; A6449; C1758; J0360; J1644; J1815; J1940; J2930; J7030

== ENCOUNTER 2017-08-13 16:56 | Inpatient (IN) | payer MEDICARE, MEDICAID ==
[~2017-08-13] VITALS: Ht 152.4 cm; Wt 160.0 kg
[2017-08-13] MEDS ORDERED: normal saline 1000ML IV soln IV ONE (17:05)
[2017-08-13 17:33] LABS: BASOPHILS % (AUTO) 0.2 % (0-1); EOSINOPHILS # (AUTO) 0.1 X10'3 (0-0.9); EOSINOPHILS % (AUTO) 1.4 % (0-6); HEMATOCRIT 37.5 % (35.0-45.0); HEMOGLOBIN 12.5 g/dl (12.0-16.0); LYMPHOCYTES # (AUTO) 0.8 X10'3 (1.1-4.8); LYMPHOCYTES % (AUTO) 10.3 % (21-51); MEAN CORPUSCULAR HEMOGLOBIN 28.7 PG (27.0-31.0); MEAN CORPUSCULAR HGB CONC 33.4 % (33.0-36.5); MEAN CORPUSCULAR VOLUME 85.9 FL (78-98); MEAN PLATELET VOLUME 7.7 FL (7.4-10.4); MONOCYTES # (AUTO) 0.3 X10'3 (0-0.9); MONOCYTES % (AUTO) 4.2 % (2-12); NEUTROPHILS # (AUTO) 6.7 X10'3 (1.8-7.7); NEUTROPHILS % (AUTO) 83.9 % (42-75); PLATELET COUNT 164 X10'3 (140-440); RED BLOOD COUNT 4.37 X10'6 (4.20-5.60); RED CELL DISTRIBUTION WIDTH 15.8 % (11.5-14.5)
[2017-08-13 17:41] LABS: INR 0.9 INR; PROTHROMBIN TIME 9.7 SECONDS (9.0-12.0)
[2017-08-13 17:48] LABS: ALANINE AMINOTRANSFERASE 39 U/L (12-78); ALBUMIN 2.8 G/DL (3.4-5.0); ALBUMIN/GLOBULIN RATIO 0.7 (1.1-1.5); ALKALINE PHOSPHATASE 102 IU/L (46-116); ANION GAP 10 (8-16); ASPARTATE AMINO TRANSFERASE 14 U/L (10-37); BILIRUBIN,TOTAL 0.4 MG/DL (0.1-1.0); BLOOD UREA NITROGEN 89 MG/DL (7-18); BUN/CREATININE RATIO 29.1 (6.6-38.0); CALCIUM 7.8 MG/DL (8.5-10.1); CHLORIDE 98 MMOL/L (99-107); CREATININE 3.06 MG/DL (0.40-0.90); GLUCOSE 99 MG/DL (70-104); SODIUM 142 MMOL/L (135-145); TOTAL CARBON DIOXIDE 34.1 MMOL/L (24-32); eGFR 16 ML/MIN
[2017-08-13] MEDS ORDERED: ipratropium/albuterol 3ml nebule NEB ONE (17:55)
[2017-08-13] MEDS ORDERED: methylPREDNISolone sod succ 125mg/2ml vial IV ONE (17:55)
[2017-08-13] MEDS ORDERED: vancomycin inj 1,000 MG in normal saline 250ml IV soln 250 ML IV STA (17:57)
[2017-08-13] MEDS ORDERED: vancomycin/NS 1 GM ADD-VANTAGE 250 ML X 1 DOSE IV ONE (18:00)
[2017-08-13 18:15] LABS: ABG BASE EXCESS 6.7 mmol/L (-2.0-3.0); ABG HCO3 32.8 mmol/L (22.0-26.0); ABG OXYGEN SATURATION 97.3 % (95-98); ABG PCO2 (T) 53.1 mmHg (32.0-45.0); ABG PH (T) 7.408 (7.350-7.450); ABG PO2 (T) 104.9 mmHg (83-108); FLOW 5 L/min; FMetHb 0.3 % (0.3-1.12); PATIENT TEMPERATURE 36.8; RESPIRATORY RATE (OBSERVED) 22 b/min; TOTAL HEMOGLOBIN 12.7 G/dl (12.0-16.0)
[2017-08-13 18:16] LABS: CLARITY,URINE CLEAR (Clear); COLOR,URINE YELLOW (Yellow); GLUCOSE, URINE NEGATIVE (Neg); KETONES,URINE NEGATIVE (Neg); LEUKOCYTE ESTERASE ,URINE NEGATIVE (Neg); NITRITES, URINE NEGATIVE (Neg); OCCULT BLOOD,URINE SMALL (Neg); PH,URINE 5.5 (4.8-8.0); PROTEIN,URINE >=300 mg/dl (Neg); UROBILINOGEN,URINE 0.2 E.U/dL (0.2-1.0)
[2017-08-13 18:21] LABS: UA COLLECTION TYPE FOLEY CATH
[2017-08-13 18:27] LABS: BACTERIA,URINE 4+ /HPF (Neg); SQUAMOUS EPITHELIAL CELL,UR NONE SEEN /LPF (FEW); WBC,URINE TNTC /HPF (0-4)
[2017-08-13 18:28] LABS: WBC CLUMPS,URINE MODERATE /HPF (NEGATIVE)
[2017-08-13] MEDS ORDERED: levoFLOXACIN-Levaquin 500mg/D5 100 ML IV ONE (18:50)
[2017-08-13] MEDS ORDERED: potassium Cl oral solution 20 MEQ/15 ML PO ONE ×2 (19:15→19:45)
[2017-08-13] MEDS ORDERED: magnesium hydroxide 30ml (MOM) UD suspension PO PRN (19:35)
[2017-08-13] MEDS ORDERED: acetaminophen 325mg tablet PO PRN (19:35)
[2017-08-13] MEDS ORDERED: mag hydrox/Alum hydrox/simeth 30ml oral suspension PO PRN (19:35)
[2017-08-13] MEDS ORDERED: ondansetron/PF 4mg/2ml inj IV PRN (19:35)
[2017-08-13 19:45] LABS: ABG BASE EXCESS 5.5 mmol/L (-2.0-3.0); ABG HCO3 31.7 mmol/L (22.0-26.0); ABG OXYGEN SATURATION 96.8 % (95-98); ABG PCO2 (T) 53.4 mmHg (32.0-45.0); ABG PH (T) 7.391 (7.350-7.450); ABG PO2 (T) 96.7 mmHg (83-108); FMetHb 0.3 % (0.3-1.12); FO2Hb 95.5 % (94-100); MINUTE VOLUME 11 L/min; RESPIRATORY RATE (OBSERVED) 18 b/min; TOTAL HEMOGLOBIN 12.3 G/dl (12.0-16.0)
[2017-08-13] MEDS ORDERED: POTA10TA15 PO (19:57)
[2017-08-13] MEDS ORDERED: FURO40TA4 PO (19:57)
[2017-08-13] MEDS ORDERED: CHOL10002 PO (19:57)
[2017-08-13] MEDS ORDERED: CLON0.1T20 PO (19:57)
[2017-08-13 20:00] LABS: HEMOGLOBIN A1C 8.7 % (4.5-6.2)
[2017-08-13] MEDS ORDERED: dextrose ORAL solution 15 GM/59 ML bottle PO PRN ×2 (20:00)
[2017-08-13] MEDS ORDERED: MESSAGE TO PHARMACY PO ONE (20:00)
[2017-08-13] MEDS ORDERED: dextrose 50%-water 50ml dispensing syringe IV PRN ×2 (20:00)
[2017-08-13] MEDS ORDERED: glucagon, human recombinant 1mg kit SUBCUT PRN (20:00)
[2017-08-13] MEDS ORDERED: HYDROcodone/acetaminophen 10/325mg tab PO PRN (20:10)
[2017-08-13] MEDS: insulin glargine (Lantus) pen - multi-dose SQ SCH (21:00)
[2017-08-13] MEDS ORDERED: non-formulary drug (Atorvastatin Calcium* (Lipitor*) 80 MG) PO SCH (21:00)
[2017-08-13] MEDS: atorvastatin 20mg tablet PO SCH (22:36)
[2017-08-13] MEDS: ipratropium/albuterol 3ml nebule NEB SCH (22:51)
[2017-08-14 00:15] VITALS: BP 155/80
[2017-08-14] MEDS: ipratropium/albuterol 3ml nebule NEB SCH ×4 (03:02→20:38)
[2017-08-14 05:57] LABS: BASOPHILS % (AUTO) 0 % (0-1); EOSINOPHILS % (AUTO) 0.6 % (0-6); HEMOGLOBIN 10.7 g/dl (12.0-16.0); LYMPHOCYTES # (AUTO) 0.2 X10'3 (1.1-4.8); LYMPHOCYTES % (AUTO) 3.9 % (21-51); MEAN CORPUSCULAR HEMOGLOBIN 28.4 PG (27.0-31.0); MEAN CORPUSCULAR HGB CONC 33.4 % (33.0-36.5); MEAN PLATELET VOLUME 8.1 FL (7.4-10.4); MONOCYTES % (AUTO) 0.4 % (2-12); NEUTROPHILS # (AUTO) 5.2 X10'3 (1.8-7.7); NEUTROPHILS % (AUTO) 95.1 % (42-75); PLATELET COUNT 142 X10'3 (140-440); RED BLOOD COUNT 3.77 X10'6 (4.20-5.60); RED CELL DISTRIBUTION WIDTH 15.7 % (11.5-14.5); WHITE BLOOD COUNT 5.5 X10'3 (4.5-11.0)
[2017-08-14 06:10] LABS: ALANINE AMINOTRANSFERASE 34 U/L (12-78); ALBUMIN 2.2 G/DL (3.4-5.0); ALBUMIN/GLOBULIN RATIO 0.6 (1.1-1.5); ALKALINE PHOSPHATASE 85 IU/L (46-116); ANION GAP 10 (8-16); ASPARTATE AMINO TRANSFERASE 12 U/L (10-37); BILIRUBIN,TOTAL 0.3 MG/DL (0.1-1.0); BLOOD UREA NITROGEN 82 MG/DL (7-18); BUN/CREATININE RATIO 30.1 (6.6-38.0); CALCIUM 7.7 MG/DL (8.5-10.1); CHLORIDE 102 MMOL/L (99-107); CREATININE 2.72 MG/DL (0.40-0.90); GLUCOSE 262 MG/DL (70-104); POTASSIUM 4.2 MMOL/L (3.5-5.1); SODIUM 143 MMOL/L (135-145); TOTAL PROTEIN 5.8 G/DL (6.4-8.2); eGFR 18 ML/MIN
[2017-08-14 07:00] VITALS: BP 151/83
[2017-08-14] MEDS ORDERED: non-formulary drug (Omeprazole* (Prilosec*) 20 MG) PO SCH (08:00)
[2017-08-14] MEDS ORDERED: non-formulary drug (Potassium Chloride 2 TAB) PO SCH (08:00)
[2017-08-14] MEDS ORDERED: buproprion 150mg XL (24-hour) tablet PO SCH (08:00)
[2017-08-14] MEDS: amLODIPine 5mg tablet PO SCH (09:37)
[2017-08-14] MEDS: potassium chloride 10mEq ER tablet PO SCH ×2 (09:37→20:50)
[2017-08-14] MEDS: insulin Lispro (HumaLOG) vial - multi-dose SQ SCH ×4 (09:37→22:19)
[2017-08-14] MEDS: buPROPion SR 150mg tablet PO SCH (09:37)
[2017-08-14] MEDS: ferrous sulfate 325mg tablet PO SCH (09:38)
[2017-08-14] MEDS: carVEDilol 12.5mg tablet PO SCH ×2 (09:38→20:50)
[2017-08-14] MEDS: levoFLOXACIN 250mg tablet PO SCH (09:38)
[2017-08-14] MEDS: levoTHYROXINE 125mcg tablet PO SCH (09:38)
[2017-08-14] MEDS: cloNIDine 0.1 mg tablet PO SCH ×2 (09:38→20:50)
[2017-08-14] MEDS: furosemide 40mg tablet PO SCH (09:38)
[2017-08-14] MEDS: pantoprazole 40mg Tablet.DR PO SCH (09:38)
[2017-08-14] MEDS: enoxaparin 40mg/0.4ml syringe SQ SCH (09:39)
[2017-08-14 12:00] VITALS: BP 147/70
[2017-08-14 19:30] VITALS: BP 125/83
[2017-08-14] MEDS: methylPREDNISolone sod succ 125mg/2ml vial IV SCH (20:48)
[2017-08-14] MEDS: clindamycin 600mg/D5W 50ml 50 ML IV SCH (20:49)
[2017-08-14] MEDS: lactobacillus rhamnosus 10,000 MMU CELLS/CAPSULE PO SCH (20:50)
[2017-08-14] MEDS: heparin, porcine 5000 units/ml vial SQ SCH (20:52)
[2017-08-14] MEDS: atorvastatin 20mg tablet PO SCH (20:53)
[2017-08-14] MEDS: insulin glargine (Lantus) pen - multi-dose SQ SCH (22:21)
[2017-08-15] VITALS: BP 134/71
[2017-08-15] MEDS: ipratropium/albuterol 3ml nebule NEB SCH ×6 (00:26→23:46)
[2017-08-15] MEDS: clindamycin 600mg/D5W 50ml 50 ML IV SCH ×4 (02:06→20:51)
[2017-08-15] MEDS: methylPREDNISolone sod succ 125mg/2ml vial IV SCH ×3 (02:06→14:24)
[2017-08-15 05:42] LABS: BASOPHILS % (AUTO) 0 % (0-1); EOSINOPHILS % (AUTO) 0.8 % (0-6); HEMATOCRIT 30.6 % (35.0-45.0); HEMOGLOBIN 10.2 g/dl (12.0-16.0); LYMPHOCYTES # (AUTO) 0.2 X10'3 (1.1-4.8); LYMPHOCYTES % (AUTO) 4.4 % (21-51); MEAN CORPUSCULAR HEMOGLOBIN 28.7 PG (27.0-31.0); MEAN CORPUSCULAR HGB CONC 33.4 % (33.0-36.5); MEAN CORPUSCULAR VOLUME 86.1 FL (78-98); MEAN PLATELET VOLUME 7.9 FL (7.4-10.4); MONOCYTES % (AUTO) 0.8 % (2-12); NEUTROPHILS # (AUTO) 4.5 X10'3 (1.8-7.7); PLATELET COUNT 144 X10'3 (140-440); RED BLOOD COUNT 3.55 X10'6 (4.20-5.60); RED CELL DISTRIBUTION WIDTH 16.2 % (11.5-14.5); WHITE BLOOD COUNT 4.8 X10'3 (4.5-11.0)
[2017-08-15 06:23] LABS: ALANINE AMINOTRANSFERASE 31 U/L (12-78); ALBUMIN/GLOBULIN RATIO 0.6 (1.1-1.5); ALKALINE PHOSPHATASE 73 IU/L (46-116); ANION GAP 6 (8-16); ASPARTATE AMINO TRANSFERASE 8 U/L (10-37); BILIRUBIN,TOTAL 0.3 MG/DL (0.1-1.0); BLOOD UREA NITROGEN 78 MG/DL (7-18); BUN/CREATININE RATIO 29.1 (6.6-38.0); CALCIUM 7.9 MG/DL (8.5-10.1); CHLORIDE 105 MMOL/L (99-107); CREATININE 2.68 MG/DL (0.40-0.90); GLUCOSE 216 MG/DL (70-104); POTASSIUM 4.5 MMOL/L (3.5-5.1); SODIUM 143 MMOL/L (135-145); TOTAL CARBON DIOXIDE 32.1 MMOL/L (24-32); TOTAL PROTEIN 5.3 G/DL (6.4-8.2); eGFR 18 ML/MIN
[2017-08-15] MEDS: pantoprazole 40mg Tablet.DR PO SCH (07:30)
[2017-08-15] MEDS: lactobacillus rhamnosus 10,000 MMU CELLS/CAPSULE PO SCH ×2 (07:31→20:52)
[2017-08-15] MEDS: carVEDilol 12.5mg tablet PO SCH ×2 (07:31→20:52)
[2017-08-15] MEDS: cloNIDine 0.1 mg tablet PO SCH ×2 (07:31→20:52)
[2017-08-15] MEDS: furosemide 40mg tablet PO SCH (07:32)
[2017-08-15] MEDS: levoFLOXACIN 250mg tablet PO SCH (07:32)
[2017-08-15] MEDS: potassium chloride 10mEq ER tablet PO SCH ×2 (07:32→20:52)
[2017-08-15] MEDS: ferrous sulfate 325mg tablet PO SCH (07:32)
[2017-08-15] MEDS: buPROPion SR 150mg tablet PO SCH (07:33)
[2017-08-15] MEDS: amLODIPine 5mg tablet PO SCH (07:33)
[2017-08-15] MEDS: levoTHYROXINE 125mcg tablet PO SCH (07:33)
[2017-08-15] MEDS: heparin, porcine 5000 units/ml vial SQ SCH ×2 (07:36→20:51)
[2017-08-15 07:49] VITALS: BP 148/87
[2017-08-15] MEDS: enoxaparin 40mg/0.4ml syringe SQ SCH (08:00)
[2017-08-15] MEDS: insulin Lispro (HumaLOG) vial - multi-dose SQ SCH ×4 (09:44→20:50)
[2017-08-15 13:08] VITALS: BP 143/86
[2017-08-15 18:00] VITALS: BP 138/62
[2017-08-15] MEDS: mineral oil/petrolatum, white cream 113gm jar TP SCH (20:00)
[2017-08-15] MEDS: insulin glargine (Lantus) pen - multi-dose SQ SCH (20:48)
[2017-08-15] MEDS: atorvastatin 20mg tablet PO SCH (20:51)
[2017-08-16] VITALS: BP 139/74
[2017-08-16] MEDS: methylPREDNISolone sod succ 125mg/2ml vial IV SCH ×2 (00:04→07:33)
[2017-08-16] MEDS: ipratropium/albuterol 3ml nebule NEB SCH ×3 (03:00→10:46)
[2017-08-16] MEDS: clindamycin 600mg/D5W 50ml 50 ML IV SCH ×2 (03:38→07:30)
[2017-08-16 06:34] LABS: ALANINE AMINOTRANSFERASE 26 U/L (12-78); ALBUMIN/GLOBULIN RATIO 0.6 (1.1-1.5); ALKALINE PHOSPHATASE 70 IU/L (46-116); ANION GAP 5 (8-16); ASPARTATE AMINO TRANSFERASE 9 U/L (10-37); BILIRUBIN,TOTAL 0.2 MG/DL (0.1-1.0); BLOOD UREA NITROGEN 71 MG/DL (7-18); BUN/CREATININE RATIO 26.3 (6.6-38.0); CALCIUM 8.4 MG/DL (8.5-10.1); CHLORIDE 106 MMOL/L (99-107); GLUCOSE 231 MG/DL (70-104); POTASSIUM 4.3 MMOL/L (3.5-5.1); SODIUM 145 MMOL/L (135-145); TOTAL CARBON DIOXIDE 33.6 MMOL/L (24-32); TOTAL PROTEIN 5.3 G/DL (6.4-8.2); eGFR 18 ML/MIN
[2017-08-16 07:00] VITALS: BP 116/81
[2017-08-16] MEDS: levoTHYROXINE 125mcg tablet PO SCH (07:46)
[2017-08-16] MEDS: amLODIPine 5mg tablet PO SCH (07:47)
[2017-08-16] MEDS: cloNIDine 0.1 mg tablet PO SCH (07:47)
[2017-08-16] MEDS: carVEDilol 12.5mg tablet PO SCH (07:47)
[2017-08-16] MEDS: ferrous sulfate 325mg tablet PO SCH (07:48)
[2017-08-16] MEDS: potassium chloride 10mEq ER tablet PO SCH (07:48)
[2017-08-16] MEDS: buPROPion SR 150mg tablet PO SCH (07:48)
[2017-08-16] MEDS: levoFLOXACIN 250mg tablet PO SCH (07:49)
[2017-08-16] MEDS: pantoprazole 40mg Tablet.DR PO SCH (07:49)
[2017-08-16] MEDS: lactobacillus rhamnosus 10,000 MMU CELLS/CAPSULE PO SCH (07:49)
[2017-08-16] MEDS: furosemide 40mg tablet PO SCH (07:49)
[2017-08-16] MEDS: heparin, porcine 5000 units/ml vial SQ SCH (07:51)
[2017-08-16] MEDS: mineral oil/petrolatum, white cream 113gm jar TP SCH (07:52)
[2017-08-16] MEDS: insulin Lispro (HumaLOG) vial - multi-dose SQ SCH (09:45)
[2017-08-16] MEDS ORDERED: LEVO250T58 PO (10:59)
[2017-08-16] MEDS ORDERED: CLIN-5 PO (10:59)
[2017-08-16] MEDS ORDERED: ALBU6.7H INH (10:59)
[2017-08-16] MEDS ORDERED: PRED10TA23 PO (10:59)
== END 2017-08-16 15:29 | disposition home health service (06) | DRG 682 ==
LOC: ER 16:57 → ED HOLD 19:35 → MED 3N 08-14 00:29
PROVIDERS: ADMIT Internal Medicine; ATTEND Internal Medicine
PROC: 5A09357 Assistance with Respiratory Ventilation, Less than 24 Consecutive Hours, Continuous Positive Airway Pressure (ICD-10-PCS; principal; 2017-08-13)
DX: N17.9 Acute kidney failure, unspecified (principal); J18.9 Pneumonia, unspecified organism; J96.21 Acute and chronic respiratory failure with hypoxia; E11.22 Type 2 diabetes mellitus with diabetic chronic kidney disease; I13.0 Hypertensive heart and chronic kidney disease with heart failure and stage 1 through stage 4 chronic kidney disease, or unspecified chronic kidney disease; L03.115 Cellulitis of right lower limb; I48.91 Unspecified atrial fibrillation; I50.810 Right heart failure, unspecified; E66.2 Morbid (severe) obesity with alveolar hypoventilation; L03.116 Cellulitis of left lower limb; J44.1 Chronic obstructive pulmonary disease with (acute) exacerbation; N39.0 Urinary tract infection, site not specified; Z68.44 Body mass index [BMI] 60.0-69.9, adult; J44.0 Chronic obstructive pulmonary disease with (acute) lower respiratory infection; N18.4 Chronic kidney disease, stage 4 (severe); I89.0 Lymphedema, not elsewhere classified; I80.3 Phlebitis and thrombophlebitis of lower extremities, unspecified; B96.20 Unspecified Escherichia coli [E. coli] as the cause of diseases classified elsewhere; I87.2 Venous insufficiency (chronic) (peripheral); Z90.49 Acquired absence of other specified parts of digestive tract; Z88.8 Allergy status to other drugs, medicaments and biological substances; Z80.0 Family history of malignant neoplasm of digestive organs
CPT/HCPCS: 36415; 36600; 71045; 80053; 81001; 82803; 82948; 83036; 83605; 85018; 85025; 85610; 87040; 87070; 87077; 87088; 87186; 93005; 94640; 94660; 94760; 96365; 96366; 96375; 97116; 97162; 97530; 99291; A4315; A6258; A6449; J1644; J1650; J1815; J1956; J2930; J3370; J3490; J7030

== ENCOUNTER 2017-09-23 00:46 | Emergency (ER) | payer MEDICARE, MEDICAID ==
[~2017-09-23] VITALS: Ht 152.4 cm; Wt 180.0 kg
[~2017-09-23 00:46] MED LIST changes: +ALBU6.7H INH; +CHOL10002 PO; +CLIN-5 PO; +CLON0.1T20 PO; +FURO40TA4 PO; +LEVO250T58 PO; +POTA10TA15 PO
[2017-09-23] MEDS ORDERED: HYDROcodone/acetaminophen 10/325mg tab PO ONE (01:30)
[2017-09-23 05:56] VITALS: BP 141/90
== END 2017-09-23 12:12 | disposition home or self-care (01) ==
LOC: ER 00:46
DX: I87.2 Venous insufficiency (chronic) (peripheral) (principal); I10 Essential (primary) hypertension; E66.01 Morbid (severe) obesity due to excess calories; J44.9 Chronic obstructive pulmonary disease, unspecified; E11.9 Type 2 diabetes mellitus without complications; Z98.890 Other specified postprocedural states; Z79.4 Long term (current) use of insulin; Z79.899 Other long term (current) drug therapy; Z88.8 Allergy status to other drugs, medicaments and biological substances
CPT/HCPCS: 93925; 93970; 99284

== ENCOUNTER 2018-08-20 15:55 | Inpatient (IN) | payer MEDICARE, MEDICAID | END 2018-08-25 17:00 | LOC: ER 15:55 → PCU 3S 08-21 07:16 → ED HOLD 20:59 | DX: I27.29 Other secondary pulmonary hypertension (principal); N17.9 Acute kidney failure, unspecified; E66.01 Morbid (severe) obesity due to excess calories ==

== ENCOUNTER 2021-02-14 14:28 | Emergency (ER) | payer MEDICARE, MEDICAID ==
[~2021-02-14] VITALS: Ht 152.4 cm; Wt 136.4 kg
[~2021-02-14 14:28] MED LIST changes: -ALBU6.7H INH; +ALBU6.7H9 INH; -AMLO1TAB53 PO; +AMLO2.5T2 PO; +BUPR-94 PO; -BUPR150T6 PO; +CARV-50 PO; -CLIN-5 PO; +CLON0.1T2 PO; -CLON0.1T20 PO; -COR3.125T PO; -LEVO250T58 PO; +LEVO25TA2 PO; +LIDOcaine 1% W/epiNEPHrine 1:100,000 20ml vial ONE; +LIRA0.6P2 SQ; +TRIA15CR61 TOP
[2021-02-14 14:54] VITALS: BP 196/80
[2021-02-14] MEDS ORDERED: LIDOcaine 1% W/epiNEPHrine 1:200,000 10ml vial IJ ONE (15:05)
[2021-02-14] MEDS ORDERED: CEPH-585 PO (16:13)
== END 2021-02-14 16:37 | disposition home or self-care (01) ==
LOC: ER 14:28
DX: S81.811A Laceration without foreign body, right lower leg, initial encounter (principal); S81.812A Laceration without foreign body, left lower leg, initial encounter; M25.561 Pain in right knee; I11.0 Hypertensive heart disease with heart failure; I50.9 Heart failure, unspecified; E78.00 Pure hypercholesterolemia, unspecified; J44.9 Chronic obstructive pulmonary disease, unspecified; I27.20 Pulmonary hypertension, unspecified; G47.30 Sleep apnea, unspecified; E11.9 Type 2 diabetes mellitus without complications; Z85.9 Personal history of malignant neoplasm, unspecified; Z90.49 Acquired absence of other specified parts of digestive tract; Z90.89 Acquired absence of other organs; Z79.4 Long term (current) use of insulin; Z79.2 Long term (current) use of antibiotics; V59.88XA Occupant (driver) (passenger) of pick-up truck or van injured in other specified transport accidents, initial encounter; Y93.89 Activity, other specified; Y92.89 Other specified places as the place of occurrence of the external cause; Y99.8 Other external cause status; Z79.899 Other long term (current) drug therapy; Z88.8 Allergy status to other drugs, medicaments and biological substances
CPT/HCPCS: 12002; 73560; 99284

== ENCOUNTER 2021-02-25 09:28 | Emergency (ER) | payer MEDICARE, MEDICAID ==
[~2021-02-25] VITALS: Ht 152.4 cm; Wt 132.3 kg
[~2021-02-25 09:28] MED LIST changes: -LIDOcaine 1% W/epiNEPHrine 1:100,000 20ml vial ONE
[2021-02-25 09:32] VITALS: BP 193/76
--- NOTE | 2021-02-25 11:22 | NUR ---
Pt continues to rest comfortably on home O2 [facility]
== END 2021-02-25 12:38 | disposition home or self-care (01) ==
LOC: ER 09:28
DX: R20.0 Anesthesia of skin (principal); R06.02 Shortness of breath; R20.2 Paresthesia of skin; I11.0 Hypertensive heart disease with heart failure; I50.9 Heart failure, unspecified; E78.00 Pure hypercholesterolemia, unspecified; J44.9 Chronic obstructive pulmonary disease, unspecified; G47.30 Sleep apnea, unspecified; I27.20 Pulmonary hypertension, unspecified; E11.9 Type 2 diabetes mellitus without complications; Z85.9 Personal history of malignant neoplasm, unspecified; Z90.49 Acquired absence of other specified parts of digestive tract; Z90.89 Acquired absence of other organs; Z79.2 Long term (current) use of antibiotics; Z79.899 Other long term (current) drug therapy; Z79.4 Long term (current) use of insulin; Z88.8 Allergy status to other drugs, medicaments and biological substances; Z48.817 Encounter for surgical aftercare following surgery on the skin and subcutaneous tissue
CPT/HCPCS: 99284

== ENCOUNTER 2021-07-26 14:16 | Inpatient (IN) | payer MEDICARE, MEDICAID ==
[~2021-07-26] VITALS: Ht 154.9 cm; Wt 160.0 kg
[~2021-07-26 14:16] MED LIST changes: -ALBU6.7H9 INH; -AMLO2.5T2 PO; +ATOR-2 PO; -ATOR80TA PO; +BUPR-317 PO; -BUPR-94 PO; +CALC0.2535 PO; -CARV-50 PO; -CHOL10002 PO; -CLON0.1T2 PO; +CLON0.2T PO; +FERR-106 PO; -FERR325T28 PO; -FLUO15OI15 TP; -HYDR-3972 PO; +HYDR-4069 PO; +HYDR-4070 PO; -INSU100C4 SQ; +INSU100I31 SQ; -LANTUS SUBCUT; +LEVO150T PO; -LEVO200T43 PO; -LEVO25TA2 PO; +NOVLG SQ; -OMEP-84 PO; +OMEP20CA16 PO; -POTA10TA15 PO; +PRED20TA PO; -TRIA15CR61 TOP
[2021-07-26] MEDS ORDERED: ipratropium/albuterol 3ml nebule NEB ONE (14:20)
[2021-07-26] MEDS ORDERED: methylPREDNISolone sod succ 125mg/2ml vial IV ONE (14:20)
[2021-07-26 14:48] LABS: BASOPHILS % (AUTO) 0.2 % (0-1); EOSINOPHILS % (AUTO) 0.1 % (0-6); HEMATOCRIT 34.8 % (35.0-45.0); HEMOGLOBIN 10.8 g/dl (12.0-16.0); LYMPHOCYTES # (AUTO) 0.6 X10'3 (1.1-4.8); LYMPHOCYTES % (AUTO) 5.1 % (21-51); MEAN CORPUSCULAR HEMOGLOBIN 26.3 PG (27.0-31.0); MEAN CORPUSCULAR HGB CONC 31.1 g/dL (33.0-36.5); MEAN CORPUSCULAR VOLUME 84.5 FL (78-98); MONOCYTES # (AUTO) 0.7 X10'3 (0-0.9); MONOCYTES % (AUTO) 6.2 % (2-12); NEUTROPHILS # (AUTO) 10.1 X10'3 (1.8-7.7); NEUTROPHILS % (AUTO) 88.4 % (42-75); PLATELET COUNT 195 X10'3 (140-440); RED BLOOD COUNT 4.12 X10'6 (4.20-5.60); RED CELL DISTRIBUTION WIDTH 18.4 % (11.5-14.5); WHITE BLOOD COUNT 11.4 X10'3 (4.5-11.0)
[2021-07-26] MEDS ORDERED: piperacillin/tazo 3.375gm/50ml 50 ML IV ONE (14:50)
[2021-07-26 14:58] LABS: ALANINE AMINOTRANSFERASE 29 U/L (12-78); ALBUMIN 2.5 G/DL (3.4-5.0); ALBUMIN/GLOBULIN RATIO 0.6 (1.1-1.5); ALKALINE PHOSPHATASE 101 IU/L (46-116); ANION GAP 10 (8-16); ASPARTATE AMINO TRANSFERASE 12 U/L (10-37); BILIRUBIN,TOTAL 0.7 MG/DL (0.1-1.0); BLOOD UREA NITROGEN 65 MG/DL (7-18); BUN/CREATININE RATIO 19.5 (6.6-38.0); CALCIUM 9.1 MG/DL (8.5-10.1); CHLORIDE 103 MMOL/L (99-107); CREATININE 3.33 MG/DL (0.40-0.90); GLUCOSE 383 MG/DL (70-104); POTASSIUM 4.1 MMOL/L (3.5-5.1); SODIUM 143 MMOL/L (135-145); TOTAL CARBON DIOXIDE 30.1 MMOL/L (24-32); TOTAL PROTEIN 6.9 G/DL (6.4-8.2); eGFR 14 ML/MIN
[2021-07-26 15:30] LABS: CLARITY,URINE SLIGHTLY CLOUDY (Clear); COLOR,URINE YELLOW (Yellow); GLUCOSE, URINE 500 mg/dl (Neg); KETONES,URINE NEGATIVE (Neg); LEUKOCYTE ESTERASE ,URINE NEGATIVE (Neg); NITRITES, URINE NEGATIVE (Neg); OCCULT BLOOD,URINE SMALL (Neg); PH,URINE 6.5 (4.8-8.0); PROTEIN,URINE >=300 mg/dl (Neg); UA COLLECTION TYPE STRAIGHT CATH; UROBILINOGEN,URINE 0.2 E.U/dL (0.2-1.0)
[2021-07-26 15:37] LABS: HYALINE CASTS 0-3 /LPF (NEGATIVE); MUCUS STRANDS FEW /LPF (Neg); SQUAMOUS EPITHELIAL CELL,UR MANY /LPF (FEW)
[2021-07-26 15:38] LABS: BACTERIA,URINE 2+ /HPF (Neg); RBC,URINE 0-2 /HPF (0-2); WBC,URINE 0-4 /HPF (0-4)
[2021-07-26 15:39] LABS: TOTAL CELLS COUNTED 100
[2021-07-26 15:43] LABS: ANISOCYTOSIS 2+; PLATELET ESTIMATE NORMAL
[2021-07-26 15:44] LABS: HYPERSEGMENTED NEUTROPHILS 2+; POLYCHROMASIA 1+
[2021-07-26 15:45] LABS: ELLIPTOCYTES FEW; HYPOCHROMASIA 1+; STOMATOCYTES 1+
[2021-07-26 15:46] LABS: LARGE PLATELETS MODERATE
[2021-07-26 16:04] LABS: MAGNESIUM 2.4 MG/DL (1.5-2.4)
[2021-07-26] MEDS ORDERED: hydrALAZINE 20mg/ml inj. IV ONE (17:10)
[2021-07-26] MEDS ORDERED: LEVO75TA PO (17:34)
[2021-07-26] MEDS ORDERED: LEVO200T PO (17:34)
[2021-07-26] MEDS ORDERED: HYDR-4069 PO (17:45)
[2021-07-26] MEDS ORDERED: diltiazem 5mg/ml 5ml inj. IV ONE (18:55)
[2021-07-26] MEDS ORDERED: diltiazem-D5W 125mg/125ml 125 ML IV ONE (18:55)
--- NOTE | 2021-07-26 19:05 | NUR ---
spoke to pharmacy over phone. they are preparing pt's cardizem drip.
[2021-07-26] MEDS ORDERED: diltiazem-NS 100mg/100ml 125 ML IV ONE (19:16)
[2021-07-26] MEDS ORDERED: labetalol 20mg/4ml (5mg/ml) syringe IV ONE (19:20)
[2021-07-26] MEDS ORDERED: furosemide 10 MG/1 ML 10ml inj IV ONE (20:00)
--- NOTE | 2021-07-26 20:15 | NUR ---
DR GROVER AT BEDSIDE ASSESSING PT
--- NOTE | 2021-07-26 20:22 | NUR ---
paged Dr Lee with pt's critical troponin result.
[2021-07-26] MEDS ORDERED: ondansetron/PF 4mg/2ml inj IV PRN (20:25)
[2021-07-26] MEDS ORDERED: acetaminophen 325mg tablet PO PRN ×2 (20:25)
[2021-07-26] MEDS ORDERED: diltiazem-D5W 125mg/125ml 125 ML IV SCH (20:25)
[2021-07-26] MEDS ORDERED: morphine 2 MG/ML inj. syringe IV PRN (20:25)
[2021-07-26] MEDS ORDERED: diltiazem-NS 100mg/100ml 100 ML IV ONE (20:39)
[2021-07-26] MEDS: normal saline 1000ml 1,000 ML IV SCH (21:16)
--- NOTE | 2021-07-26 21:27 | NUR ---
RT at bedside drawing ABGs
[2021-07-26 21:34] LABS: ABG BASE EXCESS 4.9 mmol/L (-2.0-2.0); ABG HCO3 30.8 mmol/L (22.0-26.0); ABG OXYGEN SATURATION 92.8 % (94-97); ABG PCO2 (T) 50.5 mmHg (32.0-45.0); ABG PO2 (T) 65.7 mmHg (75.0-100.0); ALLEN'S TEST POSITIVE; FCOHb 1.4 % (0.0-3.9); FLOW 6 L/min; FO2Hb 91.5 % (94-97); PATIENT TEMPERATURE 36.7; TOTAL HEMOGLOBIN 11.9 G/dl (12.0-16.0)
[2021-07-26] MEDS: albuterol 2.5 MG/3 ML nebule NEB SCH (22:35)
--- NOTE | 2021-07-27 00:45 | NUR ---
Patient in room ED 15, to be admitted to [facility]. I have received report from JEAN Pedersen, and had the opportunity to ask questions and assume patient care.
[2021-07-27 01:00] VITALS: BP 158/82
[2021-07-27] MEDS ORDERED: DEXTROSE 15 GM of carb/4 tabs (each vial/BOTTLE has 4 tablets) PO PRN ×4 (01:15→17:20)
[2021-07-27] MEDS ORDERED: dextrose 50%-water 50ml dispensing syringe IV PRN ×5 (01:15→17:20)
[2021-07-27] MEDS ORDERED: MESSAGE TO PHARMACY PO ONE (01:15)
[2021-07-27] MEDS ORDERED: glucagon, human recombinant 1mg kit SUBCUT PRN ×2 (01:15→17:20)
[2021-07-27] MEDS: albuterol 2.5 MG/3 ML nebule NEB SCH ×2 (03:03→07:23)
[2021-07-27] MEDS: heparin, porcine 5000 units/ml vial SQ SCH ×3 (04:05→16:38)
--- NOTE | 2021-07-27 05:00 | NUR ---
Pt is stable, remains in Afib, rate controlled-88bpm, Bp nxrefci987/68. Cardiazem drip discontinued.
[2021-07-27 06:00] VITALS: BP 192/112
--- NOTE | 2021-07-27 06:30 | NUR ---
Patient in room PCU 3017. I have received report from JEAN Montero and had the opportunity to ask questions and assume patient care.
[2021-07-27 06:45] LABS: ALANINE AMINOTRANSFERASE 26 U/L (12-78); ALBUMIN 2.4 G/DL (3.4-5.0); ALBUMIN/GLOBULIN RATIO 0.7 (1.1-1.5); ALKALINE PHOSPHATASE 90 IU/L (46-116); ANION GAP 14 (8-16); ASPARTATE AMINO TRANSFERASE 13 U/L (10-37); BILIRUBIN,TOTAL 0.5 MG/DL (0.1-1.0); BLOOD UREA NITROGEN 74 MG/DL (7-18); BUN/CREATININE RATIO 21.1 (6.6-38.0); CHLORIDE 103 MMOL/L (99-107); SODIUM 143 MMOL/L (135-145); TOTAL CARBON DIOXIDE 26.3 MMOL/L (24-32); TOTAL PROTEIN 5.9 G/DL (6.4-8.2); eGFR 13 ML/MIN
[2021-07-27 06:52] LABS: POTASSIUM 5.1 MMOL/L (3.5-5.1)
[2021-07-27 06:56] LABS: GLUCOSE 486 MG/DL (70-104)
--- NOTE | 2021-07-27 07:06 | NUR ---
PAGER ID: [phone] MESSAGE: Leonor Walter [id number] has a critical BG 486 FYI. Thanks Jo PENA ext [phone]
[2021-07-27] MEDS: levoTHYROXINE 75mcg tablet PO SCH (07:27)
[2021-07-27] MEDS: levoTHYROXINE 100mcg tablet PO SCH (07:27)
[2021-07-27] MEDS: buPROPion SR 150mg tablet PO SCH (07:27)
[2021-07-27] MEDS: ferrous sulfate 325mg tablet PO SCH ×2 (07:28→19:57)
[2021-07-27] MEDS: furosemide 20 MG/2 ML vial IV SCH ×2 (07:28→19:55)
[2021-07-27] MEDS: atorvastatin 20mg tablet PO SCH (07:28)
[2021-07-27] MEDS: calcitriol 0.25mcg capsule PO SCH (07:28)
[2021-07-27] MEDS: pantoprazole 40mg Tablet.DR PO SCH (07:28)
[2021-07-27] MEDS: cloNIDine 0.1 mg tablet PO SCH ×2 (07:29→19:56)
[2021-07-27] MEDS: hydrALAZINE 25 MG tablet PO SCH ×2 (07:29→19:57)
[2021-07-27] MEDS: methylPREDNISolone sod succ 125mg/2ml vial IV SCH ×2 (07:30→19:55)
[2021-07-27] MEDS: insulin Lispro (HumaLOG) vial - multi-dose SQ SCH ×3 (07:38→21:33)
[2021-07-27] MEDS ORDERED: CefTRIAXone inj 2,000 MG in dextrose 5%-water 100 ML IV SCH (08:00)
[2021-07-27] MEDS ORDERED: albuterol 2.5 MG/3 ML nebule NEB PRN (08:05)
[2021-07-27 08:35] LABS: BASOPHILS % (AUTO) 0.1 % (0-1); EOSINOPHILS % (AUTO) 0 % (0-6); HEMATOCRIT 36.1 % (35.0-45.0); HEMOGLOBIN 11.2 g/dl (12.0-16.0); LYMPHOCYTES # (AUTO) 0.4 X10'3 (1.1-4.8); LYMPHOCYTES % (AUTO) 4.5 % (21-51); MEAN CORPUSCULAR HEMOGLOBIN 26.7 PG (27.0-31.0); MEAN CORPUSCULAR HGB CONC 31.2 g/dL (33.0-36.5); MEAN CORPUSCULAR VOLUME 85.7 FL (78-98); MEAN PLATELET VOLUME 9.6 FL (7.4-10.4); MONOCYTES # (AUTO) 0.2 X10'3 (0-0.9); MONOCYTES % (AUTO) 1.9 % (2-12); NEUTROPHILS # (AUTO) 8.2 X10'3 (1.8-7.7); NEUTROPHILS % (AUTO) 93.5 % (42-75); PLATELET COUNT 258 X10'3 (140-440); RED BLOOD COUNT 4.21 X10'6 (4.20-5.60); RED CELL DISTRIBUTION WIDTH 18.9 % (11.5-14.5); WHITE BLOOD COUNT 8.8 X10'3 (4.5-11.0)
[2021-07-27] MEDS: ipratropium/albuterol 3ml nebule NEB SCH ×3 (09:00→20:15)
[2021-07-27] MEDS: diltiazem CD 180mg cap (once-daily) PO SCH (10:24)
[2021-07-27] MEDS: HYDROcodone/acetaminophen 5mg/325mg tablet PO PRN (10:45)
[2021-07-27 11:00] VITALS: BP 150/84
--- NOTE | 2021-07-27 11:46 | NUR ---
Pt insists that they should take all PO medications with milk despite education from this scenario writer that it is contributing to their increased their blood glucose levels.
--- NOTE | 2021-07-27 12:08 | NUR ---
PAGER ID: [phone] MESSAGE: Leonor Walter [id number] has a noon BG of 507. She has had a total of 53 units of insulin and it's climbing. Can we get her on a carb controlled diet? Please advise Jo PENA ext [phone]
[2021-07-27] MEDS ORDERED: Insulin Reg/NS 100units/100mL 100 ML IV SCH ×2 (12:15→12:40)
[2021-07-27] MEDS ORDERED: insulin Lispro (HumaLOG) vial - multi-dose SQ PRN (12:40)
[2021-07-27] MEDS ORDERED: insulin Lispro (HumaLOG) vial - multi-dose SQ SCH ×2 (13:00→17:20)
--- NOTE | 2021-07-27 14:51 | NUR ---
PAGER ID: [phone] MESSAGE: [id number] Leonor Jose Angel do want to D/C the lantus now that we have the insulin drip? The pharmacist recommended. Please advise Jo PENA ext [phone] last BG was 372
[2021-07-27 15:00] VITALS: BP 147/72
--- NOTE | 2021-07-27 15:56 | NUR ---
Paged hospitalist: PAGER ID: [phone] MESSAGE: [id number]: Jose Angel: Pt's 1540 blood glucose recheck is: 270. Thais, RN [phone]
[2021-07-27] MEDS ORDERED: piperacillin/tazo 3.375gm/50ml 50 ML IV SCH (16:00)
--- NOTE | 2021-07-27 17:11 | NUR ---
Paged hospitalist: PAGER ID: [phone] MESSAGE: [id number]: Jose Angel: Insulin gtt stopped at 1700. Last blood glucose was 222. Can you please reorder the pt's Humalog insulin? Also, would you like insulin gtt order to be discontinued in the emar? JEAN Plascencia [phone]
[2021-07-27 18:00] VITALS: BP 154/78
--- NOTE | 2021-07-27 18:21 | NUR ---
Problems reprioritized. Patient report given, questions answered & plan of care reviewed with Kylah PENA.
--- NOTE | 2021-07-27 18:22 | NUR ---
Patient in room PCU 3018T. I have received report from JEAN Plascencia and JEAN Osorio, and had the opportunity to ask questions and assume patient care.
[2021-07-27] MEDS: piperacillin/tazo 3.375gm/50ml 50 ML IV SCH (20:00)
[2021-07-27] MEDS ORDERED: insulin glargine (Lantus) pen - multi-dose SQ SCH (21:00)
[2021-07-27] MEDS: insulin glargine (Lantus) pen - multi-dose SQ SCH (21:35)
--- NOTE | 2021-07-27 21:43 | NUR ---
PAGER ID: [phone] MESSAGE: Sent to Dr. Lee, RE:Leonor Walter in 8712Q, BS AT 2115 ,was 509, pt was given Lantus 6units-GFR 13, pt was also given Humalog 19units SC, per Night time Insulin adjustment tool-Level 6. Pt is stable, no s/s of hyperglycemia noted.
[2021-07-27 22:00] VITALS: BP 129/75
[2021-07-28] VITALS (8 sets, daily range): BP systolic 105–151; BP diastolic 56–78
[2021-07-28] MEDS: ipratropium/albuterol 3ml nebule NEB SCH ×4 (02:54→20:03)
[2021-07-28] MEDS: heparin, porcine 5000 units/ml vial SQ SCH ×3 (04:29→15:52)
--- NOTE | 2021-07-28 06:20 | NUR ---
Problems reprioritized. Patient report given, questions answered & plan of care reviewed with JEAN Osorio and RN Charty.
[2021-07-28 07:26] LABS: BASOPHILS % (AUTO) 0 % (0-1); EOSINOPHILS % (AUTO) 0 % (0-6); HEMATOCRIT 29.3 % (35.0-45.0); HEMOGLOBIN 9.1 g/dl (12.0-16.0); LYMPHOCYTES # (AUTO) 0.2 X10'3 (1.1-4.8); LYMPHOCYTES % (AUTO) 4.4 % (21-51); MEAN CORPUSCULAR HEMOGLOBIN 26.5 PG (27.0-31.0); MEAN CORPUSCULAR HGB CONC 31.2 g/dL (33.0-36.5); MEAN CORPUSCULAR VOLUME 84.8 FL (78-98); MEAN PLATELET VOLUME 9.2 FL (7.4-10.4); MONOCYTES # (AUTO) 0.1 X10'3 (0-0.9); MONOCYTES % (AUTO) 1.1 % (2-12); NEUTROPHILS # (AUTO) 5.1 X10'3 (1.8-7.7); NEUTROPHILS % (AUTO) 94.5 % (42-75); PLATELET COUNT 198 X10'3 (140-440); RED BLOOD COUNT 3.45 X10'6 (4.20-5.60); RED CELL DISTRIBUTION WIDTH 18.6 % (11.5-14.5); WHITE BLOOD COUNT 5.4 X10'3 (4.5-11.0)
[2021-07-28 07:58] LABS: ALANINE AMINOTRANSFERASE 23 U/L (12-78); ALBUMIN 2.3 G/DL (3.4-5.0); ALBUMIN/GLOBULIN RATIO 0.7 (1.1-1.5); ALKALINE PHOSPHATASE 78 IU/L (46-116); ANION GAP 10 (8-16); ASPARTATE AMINO TRANSFERASE 9 U/L (10-37); BILIRUBIN,TOTAL 0.3 MG/DL (0.1-1.0); BLOOD UREA NITROGEN 84 MG/DL (7-18); BUN/CREATININE RATIO 22.2 (6.6-38.0); CALCIUM 8.6 MG/DL (8.5-10.1); CHLORIDE 99 MMOL/L (99-107); CREATININE 3.78 MG/DL (0.40-0.90); GLUCOSE 416 MG/DL (70-104); POTASSIUM 4.7 MMOL/L (3.5-5.1); SODIUM 138 MMOL/L (135-145); TOTAL CARBON DIOXIDE 28.9 MMOL/L (24-32); TOTAL PROTEIN 5.5 G/DL (6.4-8.2); eGFR 12 ML/MIN
[2021-07-28] MEDS: diltiazem CD 180mg cap (once-daily) PO SCH (10:05)
[2021-07-28] MEDS: ferrous sulfate 325mg tablet PO SCH ×2 (10:06→21:01)
[2021-07-28] MEDS: calcitriol 0.25mcg capsule PO SCH (10:06)
[2021-07-28] MEDS: buPROPion SR 150mg tablet PO SCH (10:07)
[2021-07-28] MEDS: hydrALAZINE 25 MG tablet PO SCH ×2 (10:07→21:03)
[2021-07-28] MEDS: levoTHYROXINE 100mcg tablet PO SCH (10:09)
[2021-07-28] MEDS: levoTHYROXINE 75mcg tablet PO SCH (10:09)
[2021-07-28] MEDS: cloNIDine 0.1 mg tablet PO SCH ×2 (10:10→20:00)
[2021-07-28] MEDS: pantoprazole 40mg Tablet.DR PO SCH (10:11)
[2021-07-28] MEDS: atorvastatin 20mg tablet PO SCH (10:12)
[2021-07-28] MEDS: piperacillin/tazo 3.375gm/50ml 50 ML IV SCH ×2 (10:16→21:44)
[2021-07-28] MEDS: methylPREDNISolone sod succ 125mg/2ml vial IV SCH ×2 (10:17→21:00)
[2021-07-28] MEDS: furosemide 20 MG/2 ML vial IV SCH ×2 (10:17→20:59)
[2021-07-28] MEDS: insulin Lispro (HumaLOG) vial - multi-dose SQ SCH ×3 (10:24→21:40)
--- NOTE | 2021-07-28 12:10 | NUR ---
promotional table spacer PAGER ID: [phone] MESSAGE: [id number] Leonor Walter gave her 76 units of insulin at 1030 I just got her BG it's 470. FYI Please advise Jo PENA ext [phone]
[2021-07-28] MEDS ORDERED: insulin glargine (Lantus) pen - multi-dose SQ ONE (12:15)
--- NOTE | 2021-07-28 15:03 | NUR ---
DM Consult: Pt A1C 6.6% appropriate per ADA guidelines. Will remain available for nutrition questions/concerns this admit. Addendum: 07/28/21 at [address] Amended: Links added.
--- NOTE | 2021-07-28 18:18 | NUR ---
Problems reprioritized. Patient report given, questions answered & plan of care reviewed with KODI .
--- NOTE | 2021-07-28 19:20 | NUR ---
Patient in room PCU 3017. I have received report from JEAN Osorio and had the opportunity to ask questions and assume patient care.
[2021-07-28] MEDS: normal saline 1000ml 1,000 ML IV SCH (20:25)
[2021-07-28] MEDS: insulin glargine (Lantus) pen - multi-dose SQ SCH (21:42)
[2021-07-29] MEDS: heparin, porcine 5000 units/ml vial SQ SCH ×3 (00:58→16:13)
[2021-07-29 02:00] VITALS: BP 130/67
[2021-07-29] MEDS: ipratropium/albuterol 3ml nebule NEB SCH ×4 (03:24→19:51)
[2021-07-29 06:00] VITALS: BP 116/80
--- NOTE | 2021-07-29 06:20 | NUR ---
Problems reprioritized. Patient report given, questions answered & plan of care reviewed with Thais.
--- NOTE | 2021-07-29 06:30 | NUR ---
Patient in room PCU 3017. I have received report from JEAN Schultz and had the opportunity to ask questions and assume patient care.
--- NOTE | 2021-07-29 06:30 | NUR ---
Patient in room PCU 3017. I have received report from JEAN Montero and had the opportunity to ask questions and assume patient care.
[2021-07-29 07:15] LABS: BASOPHILS % (AUTO) 0.1 % (0-1); EOSINOPHILS % (AUTO) 0 % (0-6); HEMATOCRIT 31.6 % (35.0-45.0); LYMPHOCYTES # (AUTO) 0.2 X10'3 (1.1-4.8); LYMPHOCYTES % (AUTO) 3.2 % (21-51); MEAN CORPUSCULAR HEMOGLOBIN 26.7 PG (27.0-31.0); MEAN CORPUSCULAR HGB CONC 31.6 g/dL (33.0-36.5); MEAN CORPUSCULAR VOLUME 84.4 FL (78-98); NEUTROPHILS # (AUTO) 4.6 X10'3 (1.8-7.7); NEUTROPHILS % (AUTO) 95.7 % (42-75); PLATELET COUNT 203 X10'3 (140-440); RED BLOOD COUNT 3.74 X10'6 (4.20-5.60); RED CELL DISTRIBUTION WIDTH 17.9 % (11.5-14.5); WHITE BLOOD COUNT 4.8 X10'3 (4.5-11.0)
[2021-07-29 08:01] LABS: ALANINE AMINOTRANSFERASE 29 U/L (12-78); ALBUMIN 2.5 G/DL (3.4-5.0); ALBUMIN/GLOBULIN RATIO 0.7 (1.1-1.5); ALKALINE PHOSPHATASE 82 IU/L (46-116); ANION GAP 12 (8-16); ASPARTATE AMINO TRANSFERASE 14 U/L (10-37); BILIRUBIN,TOTAL 0.4 MG/DL (0.1-1.0); BLOOD UREA NITROGEN 96 MG/DL (7-18); BUN/CREATININE RATIO 24.9 (6.6-38.0); CALCIUM 8.3 MG/DL (8.5-10.1); CHLORIDE 96 MMOL/L (99-107); CREATININE 3.86 MG/DL (0.40-0.90); GLUCOSE 300 MG/DL (70-104); POTASSIUM 5.3 MMOL/L (3.5-5.1); SODIUM 136 MMOL/L (135-145); TOTAL CARBON DIOXIDE 27.6 MMOL/L (24-32); TOTAL PROTEIN 5.9 G/DL (6.4-8.2); eGFR 12 ML/MIN
[2021-07-29] MEDS: atorvastatin 20mg tablet PO SCH (08:01)
[2021-07-29] MEDS: HYDROcodone/acetaminophen 5mg/325mg tablet PO PRN (08:01)
[2021-07-29] MEDS: pantoprazole 40mg Tablet.DR PO SCH (08:02)
[2021-07-29] MEDS: levoTHYROXINE 100mcg tablet PO SCH (08:02)
[2021-07-29] MEDS: levoTHYROXINE 75mcg tablet PO SCH (08:03)
[2021-07-29] MEDS: ferrous sulfate 325mg tablet PO SCH ×2 (08:03→19:42)
[2021-07-29] MEDS: hydrALAZINE 25 MG tablet PO SCH ×2 (08:04→19:42)
[2021-07-29] MEDS: buPROPion SR 150mg tablet PO SCH (08:04)
[2021-07-29] MEDS: calcitriol 0.25mcg capsule PO SCH (08:06)
[2021-07-29] MEDS: cloNIDine 0.1 mg tablet PO SCH ×2 (08:06→19:41)
[2021-07-29] MEDS: diltiazem CD 180mg cap (once-daily) PO SCH (08:06)
[2021-07-29] MEDS: methylPREDNISolone sod succ 125mg/2ml vial IV SCH ×2 (08:07→19:42)
[2021-07-29] MEDS: furosemide 20 MG/2 ML vial IV SCH ×2 (08:09→19:42)
[2021-07-29] MEDS: piperacillin/tazo 3.375gm/50ml 50 ML IV SCH ×2 (08:10→20:45)
[2021-07-29 08:11] LABS: % IRON SATURATION 16 % (11-46); IRON 34 UG/DL (49-151); TOTAL IRON BINDING CAPACITY 215 UG/DL (259-388)
[2021-07-29] MEDS: insulin Lispro (HumaLOG) vial - multi-dose SQ SCH ×4 (08:53→22:04)
[2021-07-29 11:00] VITALS: BP 125/86
[2021-07-29] MEDS: benzocaine/menthol oral lozeng 1 EACH BOX MM PRN ×2 (14:20→19:42)
[2021-07-29 14:50] VITALS: BP 149/64
[2021-07-29] MEDS: benzonatate 100mg capsule PO SCH (16:13)
[2021-07-29 18:00] VITALS: BP 151/77
--- NOTE | 2021-07-29 18:09 | NUR ---
Problems reprioritized. Patient report given, questions answered & plan of care reviewed with JEAN Montero.
--- NOTE | 2021-07-29 18:10 | NUR ---
Patient in room PCU 3017. I have received report from JEAN Osorio, and had the opportunity to ask questions and assume patient care. Pt. on 3L NC, eating dinner.
[2021-07-29] MEDS: ascorbic acid 500mg tablet PO SCH (20:45)
[2021-07-29 22:00] VITALS: BP 148/80
[2021-07-29] MEDS: insulin glargine (Lantus) pen - multi-dose SQ SCH (22:00)
[2021-07-30] MEDS: heparin, porcine 5000 units/ml vial SQ SCH ×3 (01:37→16:53)
[2021-07-30] MEDS: benzonatate 100mg capsule PO SCH ×3 (01:37→16:53)
[2021-07-30 02:00] VITALS: BP 139/66
[2021-07-30] MEDS: ipratropium/albuterol 3ml nebule NEB SCH ×4 (02:47→21:24)
[2021-07-30 06:00] VITALS: BP 142/71
--- NOTE | 2021-07-30 06:35 | NUR ---
Problems reprioritized. Patient report given, questions answered & plan of care reviewed with JEAN Blackwood.
[2021-07-30 07:03] LABS: BASOPHILS % (AUTO) 0 % (0-1); EOSINOPHILS % (AUTO) 0 % (0-6); HEMATOCRIT 30.7 % (35.0-45.0); HEMOGLOBIN 9.7 g/dl (12.0-16.0); LYMPHOCYTES # (AUTO) 0.1 X10'3 (1.1-4.8); MEAN CORPUSCULAR HEMOGLOBIN 26.5 PG (27.0-31.0); MEAN CORPUSCULAR HGB CONC 31.7 g/dL (33.0-36.5); MEAN CORPUSCULAR VOLUME 83.6 FL (78-98); MONOCYTES # (AUTO) 0.1 X10'3 (0-0.9); MONOCYTES % (AUTO) 1.4 % (2-12); NEUTROPHILS # (AUTO) 3.9 X10'3 (1.8-7.7); NEUTROPHILS % (AUTO) 95.6 % (42-75); PLATELET COUNT 197 X10'3 (140-440); RED BLOOD COUNT 3.67 X10'6 (4.20-5.60); RED CELL DISTRIBUTION WIDTH 17.6 % (11.5-14.5); WHITE BLOOD COUNT 4.1 X10'3 (4.5-11.0)
[2021-07-30 08:05] LABS: ALANINE AMINOTRANSFERASE 34 U/L (12-78); ALBUMIN 2.8 G/DL (3.4-5.0); ALBUMIN/GLOBULIN RATIO 0.8 (1.1-1.5); ALKALINE PHOSPHATASE 79 IU/L (46-116); ANION GAP 11 (8-16); ASPARTATE AMINO TRANSFERASE 13 U/L (10-37); BILIRUBIN,TOTAL 0.3 MG/DL (0.1-1.0); BLOOD UREA NITROGEN 104 MG/DL (7-18); BUN/CREATININE RATIO 25.8 (6.6-38.0); CALCIUM 8.7 MG/DL (8.5-10.1); CHLORIDE 94 MMOL/L (99-107); CREATININE 4.03 MG/DL (0.40-0.90); GLUCOSE 181 MG/DL (70-104); POTASSIUM 5.5 MMOL/L (3.5-5.1); SODIUM 133 MMOL/L (135-145); TOTAL CARBON DIOXIDE 28.5 MMOL/L (24-32); TOTAL PROTEIN 6.1 G/DL (6.4-8.2); eGFR 11 ML/MIN
[2021-07-30 08:38] LABS: IRON 57 UG/DL (49-151); TOTAL IRON BINDING CAPACITY 236 UG/DL (259-388)
[2021-07-30 08:39] LABS: % IRON SATURATION 24 % (11-46)
[2021-07-30] MEDS: levoTHYROXINE 100mcg tablet PO SCH (08:43)
[2021-07-30] MEDS: levoTHYROXINE 75mcg tablet PO SCH (08:44)
[2021-07-30] MEDS: furosemide 20 MG/2 ML vial IV SCH ×2 (08:44→20:35)
[2021-07-30] MEDS: piperacillin/tazo 3.375gm/50ml 50 ML IV SCH ×2 (08:45→20:35)
[2021-07-30] MEDS: methylPREDNISolone sod succ 125mg/2ml vial IV SCH ×2 (08:45→20:35)
[2021-07-30] MEDS: ascorbic acid 500mg tablet PO SCH ×2 (08:46→20:35)
[2021-07-30] MEDS: buPROPion SR 150mg tablet PO SCH (08:46)
[2021-07-30] MEDS: atorvastatin 20mg tablet PO SCH (08:46)
[2021-07-30] MEDS: pantoprazole 40mg Tablet.DR PO SCH (08:47)
[2021-07-30] MEDS: ferrous sulfate 325mg tablet PO SCH ×2 (08:47→20:36)
[2021-07-30] MEDS: calcitriol 0.25mcg capsule PO SCH (08:47)
[2021-07-30] MEDS: cloNIDine 0.1 mg tablet PO SCH ×2 (08:55→20:36)
[2021-07-30] MEDS: hydrALAZINE 25 MG tablet PO SCH ×2 (08:55→20:36)
[2021-07-30] MEDS: diltiazem CD 180mg cap (once-daily) PO SCH (08:56)
[2021-07-30] MEDS: insulin Lispro (HumaLOG) vial - multi-dose SQ SCH ×4 (09:06→22:14)
[2021-07-30 11:00] VITALS: BP 153/74
--- NOTE | 2021-07-30 12:40 | NUR ---
Initial: Pt admitted w/ acute respiratory failure with underlying chronic respiratory failure secondary to acute COPD exacerbation, diastolic heart failure, and chronic stage IV renal failure per EMR. Pt on 5L NC per documentation. Currently on Carb controlled diet w/ avg intake 41% x 8 meals partially meeting needs. Pt could benefit from Ensure Enlive BID to help meet nutrient needs. LBM 07/27, recommend routine bowel care if MD agreeable. Will continue to monitor. Recs: 1. Continue Carb controlled diet as tolerated, consider liberalizing to Regular if PO does not improve 2. Ensure Enlive BIDBD; pending MD verification 3. Routine bowel care 4. Weekly wts Addendum: 07/30/21 at [address] Amended: Links added.
[2021-07-30 15:00] VITALS: BP 162/75
[2021-07-30] MEDS ORDERED: sodium polystyrene sulfonate 15gm/60ml oral suspension PO ONE (17:00)
[2021-07-30 18:00] VITALS: BP 143/68
--- NOTE | 2021-07-30 18:24 | NUR ---
Problems reprioritized. Patient report given, questions answered & plan of care reviewed with Kylah.
--- NOTE | 2021-07-30 18:27 | NUR ---
Patient in room PCU 3017. I have received report from JEAN Blackwood, and had the opportunity to ask questions and assume patient care.
[2021-07-30] MEDS: normal saline 1000ml 1,000 ML IV SCH (20:36)
[2021-07-30 22:00] VITALS: BP 151/76
[2021-07-30] MEDS: insulin glargine (Lantus) pen - multi-dose SQ SCH (22:13)
[2021-07-30] MEDS: benzocaine/menthol oral lozeng 1 EACH BOX MM PRN (22:19)
[2021-07-31] MEDS: heparin, porcine 5000 units/ml vial SQ SCH ×3 (00:12→16:40)
[2021-07-31] MEDS: benzonatate 100mg capsule PO SCH ×3 (00:13→16:40)
[2021-07-31 02:00] VITALS: BP 156/77
[2021-07-31] MEDS: ipratropium/albuterol 3ml nebule NEB SCH ×4 (02:39→20:25)
--- NOTE | 2021-07-31 06:20 | NUR ---
Problems reprioritized. Patient report given, questions answered & plan of care reviewed with JEAN Blackwood.
[2021-07-31 06:40] LABS: BASOPHILS % (AUTO) 0 % (0-1); EOSINOPHILS % (AUTO) 0 % (0-6); HEMATOCRIT 29.3 % (35.0-45.0); HEMOGLOBIN 9.4 g/dl (12.0-16.0); LYMPHOCYTES # (AUTO) 0.1 X10'3 (1.1-4.8); LYMPHOCYTES % (AUTO) 1.7 % (21-51); MEAN CORPUSCULAR HEMOGLOBIN 26.9 PG (27.0-31.0); MEAN CORPUSCULAR HGB CONC 32.1 g/dL (33.0-36.5); MEAN CORPUSCULAR VOLUME 83.9 FL (78-98); MEAN PLATELET VOLUME 8.9 FL (7.4-10.4); MONOCYTES # (AUTO) 0.1 X10'3 (0-0.9); MONOCYTES % (AUTO) 1.3 % (2-12); NEUTROPHILS # (AUTO) 4.6 X10'3 (1.8-7.7); PLATELET COUNT 179 X10'3 (140-440); RED BLOOD COUNT 3.49 X10'6 (4.20-5.60); RED CELL DISTRIBUTION WIDTH 17.8 % (11.5-14.5); WHITE BLOOD COUNT 4.7 X10'3 (4.5-11.0)
[2021-07-31 07:09] LABS: ALANINE AMINOTRANSFERASE 39 U/L (12-78); ALBUMIN 2.7 G/DL (3.4-5.0); ALBUMIN/GLOBULIN RATIO 0.9 (1.1-1.5); ALKALINE PHOSPHATASE 88 IU/L (46-116); ANION GAP 13 (8-16); ASPARTATE AMINO TRANSFERASE 16 U/L (10-37); BILIRUBIN,TOTAL 0.3 MG/DL (0.1-1.0); BLOOD UREA NITROGEN 114 MG/DL (7-18); BUN/CREATININE RATIO 28.6 (6.6-38.0); CALCIUM 8.4 MG/DL (8.5-10.1); CHLORIDE 94 MMOL/L (99-107); CREATININE 3.98 MG/DL (0.40-0.90); GLUCOSE 225 MG/DL (70-104); POTASSIUM 4.4 MMOL/L (3.5-5.1); SODIUM 135 MMOL/L (135-145); TOTAL CARBON DIOXIDE 28.5 MMOL/L (24-32); TOTAL PROTEIN 5.7 G/DL (6.4-8.2); eGFR 11 ML/MIN
[2021-07-31] MEDS: levoTHYROXINE 75mcg tablet PO SCH (07:30)
[2021-07-31] MEDS: levoTHYROXINE 100mcg tablet PO SCH (07:30)
[2021-07-31] MEDS: buPROPion SR 150mg tablet PO SCH (07:30)
[2021-07-31] MEDS: hydrALAZINE 25 MG tablet PO SCH ×2 (07:31→19:15)
[2021-07-31] MEDS: pantoprazole 40mg Tablet.DR PO SCH (07:31)
[2021-07-31] MEDS: diltiazem CD 180mg cap (once-daily) PO SCH (07:31)
[2021-07-31] MEDS: cloNIDine 0.1 mg tablet PO SCH ×2 (07:32→19:15)
[2021-07-31] MEDS: ascorbic acid 500mg tablet PO SCH ×2 (07:32→19:14)
[2021-07-31] MEDS: calcitriol 0.25mcg capsule PO SCH (07:32)
[2021-07-31] MEDS: ferrous sulfate 325mg tablet PO SCH ×2 (07:32→19:15)
[2021-07-31] MEDS: atorvastatin 20mg tablet PO SCH (07:32)
[2021-07-31] MEDS: furosemide 20 MG/2 ML vial IV SCH ×2 (07:33→16:40)
[2021-07-31] MEDS: methylPREDNISolone sod succ 125mg/2ml vial IV SCH (07:33)
[2021-07-31 07:36] LABS: % IRON SATURATION 26 % (11-46); IRON 57 UG/DL (49-151); TOTAL IRON BINDING CAPACITY 218 UG/DL (259-388)
[2021-07-31] MEDS: insulin Lispro (HumaLOG) vial - multi-dose SQ SCH ×3 (09:02→19:12)
[2021-07-31] MEDS: piperacillin/tazo 3.375gm/50ml 50 ML IV SCH ×2 (09:06→19:17)
[2021-07-31 15:00] VITALS: BP 180/80
[2021-07-31 18:00] VITALS: BP 157/76
--- NOTE | 2021-07-31 18:06 | NUR ---
Pt Leonor Walter Rm 3017 BP 180/80 MAP 94, HR 92 - No PRN BP meds. Merced/RN PCU 3109
--- NOTE | 2021-07-31 18:18 | NUR ---
Problems reprioritized. Patient report given, questions answered & plan of care reviewed with Kylah/RN.
--- NOTE | 2021-07-31 19:15 | NUR ---
PM dose of Solumedrol 60mg, given IV at 1915.
[2021-07-31] MEDS: benzocaine/menthol oral lozeng 1 EACH BOX MM PRN (19:16)
[2021-07-31 19:46] LABS: BASOPHILS % (AUTO) 0.3 % (0-1); EOSINOPHILS % (AUTO) 0 % (0-6); HEMATOCRIT 32.1 % (35.0-45.0); HEMOGLOBIN 10.3 g/dl (12.0-16.0); LYMPHOCYTES # (AUTO) 0.1 X10'3 (1.1-4.8); LYMPHOCYTES % (AUTO) 1.2 % (21-51); MEAN CORPUSCULAR HEMOGLOBIN 26.6 PG (27.0-31.0); MEAN CORPUSCULAR VOLUME 82.9 FL (78-98); MEAN PLATELET VOLUME 8.9 FL (7.4-10.4); MONOCYTES # (AUTO) 0.3 X10'3 (0-0.9); MONOCYTES % (AUTO) 2.7 % (2-12); NEUTROPHILS # (AUTO) 10.4 X10'3 (1.8-7.7); NEUTROPHILS % (AUTO) 95.8 % (42-75); PLATELET COUNT 236 X10'3 (140-440); RED BLOOD COUNT 3.87 X10'6 (4.20-5.60); RED CELL DISTRIBUTION WIDTH 17.7 % (11.5-14.5); WHITE BLOOD COUNT 10.9 X10'3 (4.5-11.0)
[2021-07-31] MEDS ORDERED: methylPREDNISolone sod succ/PF 40mg inj. IV SCH (20:00)
[2021-07-31 22:00] VITALS: BP 105/78
[2021-07-31] MEDS: insulin glargine (Lantus) pen - multi-dose SQ SCH (22:05)
[2021-08-01] MEDS: furosemide 20 MG/2 ML vial IV SCH ×3 (00:15→16:30)
[2021-08-01] MEDS: benzonatate 100mg capsule PO SCH ×3 (00:15→16:29)
[2021-08-01] MEDS: heparin, porcine 5000 units/ml vial SQ SCH ×3 (00:16→16:31)
[2021-08-01 02:00] VITALS: BP 125/85
[2021-08-01] MEDS: ipratropium/albuterol 3ml nebule NEB SCH ×4 (02:56→20:53)
[2021-08-01 06:00] VITALS: BP 190/90
--- NOTE | 2021-08-01 06:40 | NUR ---
Problems reprioritized. Patient report given, questions answered & plan of care reviewed with Merced.
[2021-08-01 06:50] LABS: % IRON SATURATION 28 % (11-46); IRON 70 UG/DL (49-151); TOTAL IRON BINDING CAPACITY 251 UG/DL (259-388)
[2021-08-01] MEDS ORDERED: methylPREDNISolone sod succ/PF 40mg inj. IV SCH (08:00)
[2021-08-01] MEDS: ascorbic acid 500mg tablet PO SCH ×2 (08:11→20:14)
[2021-08-01] MEDS: levoTHYROXINE 75mcg tablet PO SCH (08:11)
[2021-08-01] MEDS: ferrous sulfate 325mg tablet PO SCH ×2 (08:12→20:14)
[2021-08-01] MEDS: pantoprazole 40mg Tablet.DR PO SCH (08:12)
[2021-08-01] MEDS: atorvastatin 20mg tablet PO SCH (08:12)
[2021-08-01] MEDS: levoTHYROXINE 100mcg tablet PO SCH (08:12)
[2021-08-01] MEDS: cloNIDine 0.1 mg tablet PO SCH ×2 (08:12→20:31)
[2021-08-01] MEDS: buPROPion SR 150mg tablet PO SCH (08:12)
[2021-08-01] MEDS: calcitriol 0.25mcg capsule PO SCH (08:13)
[2021-08-01] MEDS: hydrALAZINE 25 MG tablet PO SCH ×2 (08:13→20:31)
[2021-08-01] MEDS: diltiazem CD 180mg cap (once-daily) PO SCH (08:13)
[2021-08-01] MEDS: piperacillin/tazo 3.375gm/50ml 50 ML IV SCH ×2 (08:34→20:09)
[2021-08-01] MEDS: insulin Lispro (HumaLOG) vial - multi-dose SQ SCH ×3 (08:41→20:10)
[2021-08-01 11:00] VITALS: BP 126/72
[2021-08-01 11:15] LABS: ALBUMIN 2.8 G/DL (3.4-5.0); ANION GAP 9 (8-16); BLOOD UREA NITROGEN 119 MG/DL (7-18); BUN/CREATININE RATIO 29.8 (6.6-38.0); CHLORIDE 97 MMOL/L (99-107); CREATININE 3.99 MG/DL (0.40-0.90); GLUCOSE 151 MG/DL (70-104); MAGNESIUM 2.3 MG/DL (1.5-2.4); POTASSIUM 3.7 MMOL/L (3.5-5.1); SODIUM 138 MMOL/L (135-145); TOTAL CARBON DIOXIDE 31.7 MMOL/L (24-32); eGFR 11 ML/MIN
[2021-08-01 11:21] LABS: BASOPHILS % (AUTO) 0.1 % (0-1); EOSINOPHILS % (AUTO) 0 % (0-6); HEMATOCRIT 31.2 % (35.0-45.0); LYMPHOCYTES # (AUTO) 0.1 X10'3 (1.1-4.8); LYMPHOCYTES % (AUTO) 0.9 % (21-51); MEAN CORPUSCULAR HEMOGLOBIN 26.4 PG (27.0-31.0); MEAN CORPUSCULAR VOLUME 82.6 FL (78-98); MONOCYTES # (AUTO) 0.2 X10'3 (0-0.9); MONOCYTES % (AUTO) 1.8 % (2-12); NEUTROPHILS # (AUTO) 8.8 X10'3 (1.8-7.7); NEUTROPHILS % (AUTO) 97.2 % (42-75); PLATELET COUNT 189 X10'3 (140-440); RED BLOOD COUNT 3.77 X10'6 (4.20-5.60); RED CELL DISTRIBUTION WIDTH 17.9 % (11.5-14.5)
[2021-08-01 18:00] VITALS: BP 185/85
--- NOTE | 2021-08-01 18:35 | NUR ---
Patient in room PCU 3017. I have received report from JEAN Blackwood and had the opportunity to ask questions and assume patient care.
[2021-08-01] MEDS: normal saline 1000ml 1,000 ML IV SCH (20:32)
[2021-08-01] MEDS: insulin glargine (Lantus) pen - multi-dose SQ SCH (21:49)
[2021-08-01 22:00] VITALS: BP 98/62
[2021-08-02] MEDS: benzonatate 100mg capsule PO SCH ×3 (00:37→16:32)
[2021-08-02] MEDS: heparin, porcine 5000 units/ml vial SQ SCH ×3 (00:38→16:32)
[2021-08-02 02:00] VITALS: BP 151/67
[2021-08-02] MEDS: ipratropium/albuterol 3ml nebule NEB SCH ×4 (02:26→20:28)
[2021-08-02 06:00] VITALS: BP 111/66
--- NOTE | 2021-08-02 06:27 | NUR ---
Patient in room [facility] 3017. I have received report from JEAN Blackwood and had the opportunity to ask questions and assume patient care. Addendum: 08/03/21 at 0452 by Sophia Alfaro RN Problems reprioritized. Patient report given, questions answered & plan of care reviewed with JEAN Blackwood.
[2021-08-02 06:38] LABS: BASOPHILS % (AUTO) 0 % (0-1); EOSINOPHILS % (AUTO) 0 % (0-6); HEMATOCRIT 30.3 % (35.0-45.0); HEMOGLOBIN 9.7 g/dl (12.0-16.0); LYMPHOCYTES # (AUTO) 0.3 X10'3 (1.1-4.8); LYMPHOCYTES % (AUTO) 2.3 % (21-51); MEAN CORPUSCULAR HEMOGLOBIN 26.6 PG (27.0-31.0); MEAN CORPUSCULAR HGB CONC 31.9 g/dL (33.0-36.5); MEAN CORPUSCULAR VOLUME 83.5 FL (78-98); MEAN PLATELET VOLUME 8.6 FL (7.4-10.4); MONOCYTES # (AUTO) 0.8 X10'3 (0-0.9); MONOCYTES % (AUTO) 7.3 % (2-12); NEUTROPHILS # (AUTO) 9.7 X10'3 (1.8-7.7); NEUTROPHILS % (AUTO) 90.4 % (42-75); PLATELET COUNT 195 X10'3 (140-440); RED BLOOD COUNT 3.63 X10'6 (4.20-5.60); RED CELL DISTRIBUTION WIDTH 18.8 % (11.5-14.5); WHITE BLOOD COUNT 10.7 X10'3 (4.5-11.0)
[2021-08-02 07:02] LABS: ALANINE AMINOTRANSFERASE 41 U/L (12-78); ALBUMIN 2.5 G/DL (3.4-5.0); ALBUMIN/GLOBULIN RATIO 0.9 (1.1-1.5); ALKALINE PHOSPHATASE 75 IU/L (46-116); ANION GAP 10 (8-16); ASPARTATE AMINO TRANSFERASE 20 U/L (10-37); BILIRUBIN,TOTAL 0.4 MG/DL (0.1-1.0); BLOOD UREA NITROGEN 125 MG/DL (7-18); BUN/CREATININE RATIO 31.4 (6.6-38.0); CALCIUM 8.3 MG/DL (8.5-10.1); CHLORIDE 98 MMOL/L (99-107); CREATININE 3.98 MG/DL (0.40-0.90); MAGNESIUM 2.4 MG/DL (1.5-2.4); PHOSPHORUS 5.9 MG/DL (2.3-4.5); POTASSIUM 3.4 MMOL/L (3.5-5.1); SODIUM 140 MMOL/L (135-145); TOTAL CARBON DIOXIDE 32.2 MMOL/L (24-32); TOTAL PROTEIN 5.2 G/DL (6.4-8.2); eGFR 11 ML/MIN
[2021-08-02 07:05] LABS: GLUCOSE 25 MG/DL (70-104)
[2021-08-02 07:24] LABS: % IRON SATURATION 38 % (11-46); IRON 81 UG/DL (49-151); TOTAL IRON BINDING CAPACITY 211 UG/DL (259-388)
--- NOTE | 2021-08-02 07:49 | NUR ---
Pt Jose Angel Galvez Rm 3017-A Blood glucose at 0700 was 22 - 50 dextrose IV administered by 0710 - Rechecked BG 105 by 0730 - BG at 0745 81.Will continue to monitor
[2021-08-02] MEDS: calcitriol 0.25mcg capsule PO SCH (08:00)
[2021-08-02] MEDS: benzocaine/menthol oral lozeng 1 EACH BOX MM PRN ×4 (08:02→21:13)
[2021-08-02] MEDS: levoTHYROXINE 75mcg tablet PO SCH (08:08)
[2021-08-02] MEDS: pantoprazole 40mg Tablet.DR PO SCH (08:08)
[2021-08-02] MEDS: levoTHYROXINE 100mcg tablet PO SCH (08:08)
[2021-08-02] MEDS: atorvastatin 20mg tablet PO SCH (08:09)
[2021-08-02] MEDS: buPROPion SR 150mg tablet PO SCH (08:09)
[2021-08-02] MEDS: cloNIDine 0.1 mg tablet PO SCH ×2 (08:09→20:53)
[2021-08-02] MEDS: ascorbic acid 500mg tablet PO SCH ×2 (08:09→20:54)
[2021-08-02] MEDS: ferrous sulfate 325mg tablet PO SCH ×2 (08:09→20:54)
[2021-08-02] MEDS: diltiazem CD 180mg cap (once-daily) PO SCH (08:09)
[2021-08-02] MEDS: hydrALAZINE 25 MG tablet PO SCH ×2 (08:10→20:54)
[2021-08-02] MEDS: furosemide 20 MG/2 ML vial IV SCH (08:11)
--- NOTE | 2021-08-02 09:09 | NUR ---
Reassessment: Pt continues on Carb controlled diet w/ some improvement in intake, now avg 78% x 9 meals likely meeting est nutrient needs. ONS unverified in EMR though if PO trends continue ONS may not be indicated. Noted pt w/ a 22 BG overnight, per documentation 50 units of Lantus given for BG of 120, d/w Pharmacist. Per [facility], no HD at this time. LBM 07/30. Will continue to monitor. Recs: 1. Continue Carb controlled diet as tolerated 2. Ensure Enlive BIDBD; pending MD verification. IF PO trends continue ONS may not be indicated 3. Routine bowel care 4. Weekly wts Addendum: 08/02/21 at [address] Amended: Links added.
[2021-08-02] MEDS: piperacillin/tazo 3.375gm/50ml 50 ML IV SCH ×2 (10:31→20:53)
[2021-08-02 11:00] VITALS: BP 165/84
[2021-08-02] MEDS: nystatin 500,000 unit/5ML UD oral suspension PO SCH ×2 (13:30→20:53)
[2021-08-02 15:00] VITALS: BP 133/68
--- NOTE | 2021-08-02 18:25 | NUR ---
Patient in room PCU 3017. I have received report from JEAN Blackwood and had the opportunity to ask questions and assume patient care.
[2021-08-02 19:00] VITALS: BP 179/72
[2021-08-02] MEDS: insulin glargine (Lantus) pen - multi-dose SQ SCH (21:00)
[2021-08-02 23:00] VITALS: BP 114/69
[2021-08-03] MEDS: heparin, porcine 5000 units/ml vial SQ SCH ×2 (00:40→08:00)
[2021-08-03] MEDS: benzonatate 100mg capsule PO SCH ×2 (00:41→07:53)
[2021-08-03] MEDS: benzocaine/menthol oral lozeng 1 EACH BOX MM PRN ×2 (01:29→05:35)
[2021-08-03] MEDS: ipratropium/albuterol 3ml nebule NEB SCH ×3 (02:40→14:53)
[2021-08-03 03:00] VITALS: BP 150/75
[2021-08-03 06:00] VITALS: BP 177/74
--- NOTE | 2021-08-03 06:32 | NUR ---
Problems reprioritized. Patient report given, questions answered & plan of care reviewed with JEAN Schreiber.
[2021-08-03 06:39] LABS: BASOPHILS % (AUTO) 0.1 % (0-1); EOSINOPHILS # (AUTO) 0.1 X10'3 (0-0.9); EOSINOPHILS % (AUTO) 0.8 % (0-6); HEMATOCRIT 32.3 % (35.0-45.0); HEMOGLOBIN 10.2 g/dl (12.0-16.0); LYMPHOCYTES # (AUTO) 0.2 X10'3 (1.1-4.8); LYMPHOCYTES % (AUTO) 2.1 % (21-51); MEAN CORPUSCULAR HEMOGLOBIN 26.5 PG (27.0-31.0); MEAN CORPUSCULAR HGB CONC 31.6 g/dL (33.0-36.5); MEAN PLATELET VOLUME 8.8 FL (7.4-10.4); MONOCYTES # (AUTO) 0.6 X10'3 (0-0.9); MONOCYTES % (AUTO) 5.6 % (2-12); NEUTROPHILS # (AUTO) 10.5 X10'3 (1.8-7.7); NEUTROPHILS % (AUTO) 91.4 % (42-75); PLATELET COUNT 167 X10'3 (140-440); RED BLOOD COUNT 3.84 X10'6 (4.20-5.60); RED CELL DISTRIBUTION WIDTH 18.3 % (11.5-14.5); WHITE BLOOD COUNT 11.5 X10'3 (4.5-11.0)
[2021-08-03 07:16] LABS: ALANINE AMINOTRANSFERASE 46 U/L (12-78); ALBUMIN 2.5 G/DL (3.4-5.0); ALBUMIN/GLOBULIN RATIO 0.7 (1.1-1.5); ALKALINE PHOSPHATASE 80 IU/L (46-116); ANION GAP 8 (8-16); ASPARTATE AMINO TRANSFERASE 20 U/L (10-37); BILIRUBIN,TOTAL 0.4 MG/DL (0.1-1.0); BLOOD UREA NITROGEN 122 MG/DL (7-18); BUN/CREATININE RATIO 32.7 (6.6-38.0); CALCIUM 7.8 MG/DL (8.5-10.1); CHLORIDE 99 MMOL/L (99-107); CREATININE 3.73 MG/DL (0.40-0.90); GLUCOSE 106 MG/DL (70-104); MAGNESIUM 2.4 MG/DL (1.5-2.4); PHOSPHORUS 5.8 MG/DL (2.3-4.5); POTASSIUM 3.7 MMOL/L (3.5-5.1); SODIUM 140 MMOL/L (135-145); TOTAL CARBON DIOXIDE 32.8 MMOL/L (24-32); TOTAL PROTEIN 6.3 G/DL (6.4-8.2); eGFR 12 ML/MIN
[2021-08-03] MEDS: piperacillin/tazo 3.375gm/50ml 50 ML IV SCH (07:51)
[2021-08-03] MEDS: levoTHYROXINE 100mcg tablet PO SCH (07:52)
[2021-08-03] MEDS: furosemide 20 MG/2 ML vial IV SCH (07:52)
[2021-08-03] MEDS: levoTHYROXINE 75mcg tablet PO SCH (07:53)
[2021-08-03] MEDS: atorvastatin 20mg tablet PO SCH (07:53)
[2021-08-03] MEDS: diltiazem CD 180mg cap (once-daily) PO SCH (07:53)
[2021-08-03] MEDS: ascorbic acid 500mg tablet PO SCH (07:55)
[2021-08-03] MEDS: calcitriol 0.25mcg capsule PO SCH (07:55)
[2021-08-03] MEDS: cloNIDine 0.1 mg tablet PO SCH (07:55)
[2021-08-03] MEDS: buPROPion SR 150mg tablet PO SCH (07:55)
[2021-08-03] MEDS: ferrous sulfate 325mg tablet PO SCH (07:55)
[2021-08-03] MEDS: pantoprazole 40mg Tablet.DR PO SCH (07:55)
[2021-08-03] MEDS: nystatin 500,000 unit/5ML UD oral suspension PO SCH ×2 (07:56→13:09)
[2021-08-03] MEDS: hydrALAZINE 25 MG tablet PO SCH (07:56)
[2021-08-03 11:00] VITALS: BP 157/74
--- NOTE | 2021-08-03 15:45 | NUR ---
Patient discharge for other facility to continue treatment. Patient was discharge alert and orient and transported by [facility].
== END 2021-08-03 15:43 | DRG 871 ==
LOC: ER 14:16 → ED HOLD 20:35 → PCU 3S 07-27 01:05
PROVIDERS: ADMIT Internal Medicine; ATTEND Family Medicine
PROC: 5A09357 Assistance with Respiratory Ventilation, Less than 24 Consecutive Hours, Continuous Positive Airway Pressure (ICD-10-PCS; principal; 2021-07-26)
PROC: 5A09357 Assistance with Respiratory Ventilation, Less than 24 Consecutive Hours, Continuous Positive Airway Pressure (ICD-10-PCS; 2021-07-27)
PROC: 5A09357 Assistance with Respiratory Ventilation, Less than 24 Consecutive Hours, Continuous Positive Airway Pressure (ICD-10-PCS; 2021-07-28)
PROC: 5A09357 Assistance with Respiratory Ventilation, Less than 24 Consecutive Hours, Continuous Positive Airway Pressure (ICD-10-PCS; 2021-07-29)
PROC: 5A09357 Assistance with Respiratory Ventilation, Less than 24 Consecutive Hours, Continuous Positive Airway Pressure (ICD-10-PCS; 2021-07-30)
PROC: 5A09357 Assistance with Respiratory Ventilation, Less than 24 Consecutive Hours, Continuous Positive Airway Pressure (ICD-10-PCS; 2021-07-31)
PROC: 5A09357 Assistance with Respiratory Ventilation, Less than 24 Consecutive Hours, Continuous Positive Airway Pressure (ICD-10-PCS; 2021-08-01)
PROC: 5A09357 Assistance with Respiratory Ventilation, Less than 24 Consecutive Hours, Continuous Positive Airway Pressure (ICD-10-PCS; 2021-08-02)
PROC: 5A09357 Assistance with Respiratory Ventilation, Less than 24 Consecutive Hours, Continuous Positive Airway Pressure (ICD-10-PCS; 2021-08-03)
DX: A41.9 Sepsis, unspecified organism (principal); I50.33 Acute on chronic diastolic (congestive) heart failure; I21.A1 Myocardial infarction type 2; J96.21 Acute and chronic respiratory failure with hypoxia; J18.9 Pneumonia, unspecified organism; J44.1 Chronic obstructive pulmonary disease with (acute) exacerbation; I13.0 Hypertensive heart and chronic kidney disease with heart failure and stage 1 through stage 4 chronic kidney disease, or unspecified chronic kidney disease; N18.4 Chronic kidney disease, stage 4 (severe); E66.2 Morbid (severe) obesity with alveolar hypoventilation; J44.0 Chronic obstructive pulmonary disease with (acute) lower respiratory infection; Z68.44 Body mass index [BMI] 60.0-69.9, adult; Z20.822 Contact with and (suspected) exposure to COVID-19; E87.5 Hyperkalemia; K21.9 Gastro-esophageal reflux disease without esophagitis; E11.22 Type 2 diabetes mellitus with diabetic chronic kidney disease; E78.00 Pure hypercholesterolemia, unspecified; E78.5 Hyperlipidemia, unspecified; E87.6 Hypokalemia; E89.0 Postprocedural hypothyroidism; I27.81 Cor pulmonale (chronic); I48.91 Unspecified atrial fibrillation; Z79.4 Long term (current) use of insulin; Z79.890 Hormone replacement therapy; Z80.0 Family history of malignant neoplasm of digestive organs; Z90.49 Acquired absence of other specified parts of digestive tract; Z88.8 Allergy status to other drugs, medicaments and biological substances; Z82.49 Family history of ischemic heart disease and other diseases of the circulatory system; Z79.899 Other long term (current) drug therapy
CPT/HCPCS: 36000; 36415; 36600; 71045; 76937; 80048; 80053; 81001; 82803; 82948; 83036; 83540; 83550; 83605; 83735; 83880; 84100; 84145; 84484; 85007; 85018; 85025; 87040; 87081; 87635; 93005; 94640; 94760; 97110; 97116; 97161; 97530; 99291; C9803; G0378; J0360; J0696; J1644; J1815; J1940; J2543; J2920; J2930; J3490; J7030; J7060

== ENCOUNTER 2022-04-19 07:31 | Day surgery (SDC) | payer MEDICARE, MEDICAID ==
[~2022-04-19] VITALS: Ht 152.4 cm; Wt 146.5 kg
[2022-04-19] VITALS (10 sets, daily range): BP systolic 123–148; BP diastolic 55–79
[~2022-04-19 07:31] MED LIST changes: -HYDR-4070 PO; -LEVO150T PO; +LEVO200T PO; +LEVO75TA PO; -PRED20TA PO
[2022-04-19] MEDS ORDERED: normal saline 1000ml 1,000 ML IV PRN (07:55)
[2022-04-19 09:06] LABS: BASOPHILS # (AUTO) 0.1 X10'3 (0-0.2); BASOPHILS % (AUTO) 1.5 % (0-1); EOSINOPHILS # (AUTO) 0.1 X10'3 (0-0.9); EOSINOPHILS % (AUTO) 3.3 % (0-6); LYMPHOCYTES # (AUTO) 0.6 X10'3 (1.1-4.8); LYMPHOCYTES % (AUTO) 14.7 % (21-51); MEAN PLATELET VOLUME 8.6 FL (7.4-10.4); MONOCYTES # (AUTO) 0.4 X10'3 (0-0.9); MONOCYTES % (AUTO) 10.9 % (2-12); NEUTROPHILS # (AUTO) 2.8 X10'3 (1.8-7.7); NEUTROPHILS % (AUTO) 69.6 % (42-75); PLATELET COUNT 191 X10'3 (140-440); RED CELL DISTRIBUTION WIDTH 18.8 % (11.5-14.5); WHITE BLOOD COUNT 4.1 X10'3 (4.5-11.0)
[2022-04-19 09:21] LABS: HEMOGLOBIN 9.3 g/dl (12.0-16.0); RED BLOOD COUNT 3.63 X10'6 (4.20-5.60)
[2022-04-19 09:22] LABS: HEMATOCRIT 30.3 % (35.0-45.0); MEAN CORPUSCULAR HEMOGLOBIN 25.7 PG (27.0-31.0); MEAN CORPUSCULAR HGB CONC 30.8 g/dL (33.0-36.5); MEAN CORPUSCULAR VOLUME 83.4 FL (78-98)
[2022-04-19] MEDS ORDERED: CARV12.5 PO (09:34)
[2022-04-19] MEDS ORDERED: AMLO10TA13 PO (09:34)
[2022-04-19] MEDS ORDERED: CARV6.253 PO (09:34)
[2022-04-19] MEDS ORDERED: APIX5TAB3 PO (09:34)
[2022-04-19] MEDS ORDERED: midazolam 1 mg/ML 2ml injection ONE (10:47)
[2022-04-19] MEDS ORDERED: fentaNYL/PF 50MCG/1 ML 2ML syringe ONE (10:47)
[2022-04-19] MEDS ORDERED: heparin 1,000unit/ml 10ml vial 10 ML ONE (10:47)
[2022-04-19] MEDS ORDERED: HYDROcodone/acetaminophen 5mg/325mg tablet PO STA (12:09)
== END 2022-04-19 16:40 | disposition home or self-care (01) ==
LOC: SSTAY O 07:31
PROVIDERS: ATTEND Radiology Vascular & Interventional Radiology
DX: E11.22 Type 2 diabetes mellitus with diabetic chronic kidney disease (principal); I13.2 Hypertensive heart and chronic kidney disease with heart failure and with stage 5 chronic kidney disease, or end stage renal disease; N18.6 End stage renal disease; I50.9 Heart failure, unspecified; Z90.49 Acquired absence of other specified parts of digestive tract; Z98.890 Other specified postprocedural states; Z83.3 Family history of diabetes mellitus; Z80.0 Family history of malignant neoplasm of digestive organs; Z82.49 Family history of ischemic heart disease and other diseases of the circulatory system; Z79.890 Hormone replacement therapy; Z79.4 Long term (current) use of insulin; Z79.899 Other long term (current) drug therapy; Z87.891 Personal history of nicotine dependence; Z88.8 Allergy status to other drugs, medicaments and biological substances
CPT/HCPCS: 36415; 36558; 76937; 77001; 85025; 99152; 99153; C1750; C1769; C1894; J1644; J2250; J3010; J7030; A9270

== ENCOUNTER 2022-06-06 10:52 | Outpatient (CLI) | payer OTHER ==
[~2022-06-06 10:52] MED LIST changes: +AMLO10TA13 PO; +APIX5TAB3 PO; +CARV12.5 PO; +CARV6.253 PO; +iohexol 300mg/ml 100ml inj. ONE
== END 2022-06-06 23:59 | disposition home or self-care (01) ==
LOC: RAD 10:52
PROVIDERS: ATTEND Internal Medicine
DX: K57.30 Diverticulosis of large intestine without perforation or abscess without bleeding (principal); D72.829 Elevated white blood cell count, unspecified; I51.7 Cardiomegaly; J90 Pleural effusion, not elsewhere classified; J98.11 Atelectasis; I77.89 Other specified disorders of arteries and arterioles; I70.0 Atherosclerosis of aorta; M47.816 Spondylosis without myelopathy or radiculopathy, lumbar region; Z90.49 Acquired absence of other specified parts of digestive tract; Z98.890 Other specified postprocedural states
CPT/HCPCS: 74176; J3490; Q9967

== ENCOUNTER → 2022-06-26 | Emergency (ER) | payer MEDICARE, MEDICAID ==
[~2022-06-26] VITALS: Ht 152.4 cm; Wt 104.0 kg
[~2022-06-26] MED LIST changes: +EPOETIN ALFA-EPBX 20,000 UNIT/ML 1 ML MDV IV ONE; +LIDOcaine 1% (10mg/ml) 2ml vial SQ ONE; +heparin 1,000 units/ml 10ml inj HE ONE; +heparin 1,000 units/ml 10ml inj IV ONE; +heparin 1,000unit/ml 10ml vial 10 ML IV ONE; -iohexol 300mg/ml 100ml inj. ONE; +normal saline 1000ml 250 ML IV PRN
--- NOTE | 2022-06-26 08:39 | NUR ---
Contacted varnish maker Sary, made aware that patient is in roomED 15.
--- NOTE | 2022-06-26 08:39 | NUR ---
customer experience specialist/Sary # [phone].
--- NOTE | 2022-06-26 09:17 | NUR ---
Dr. Lisa at bedside.
--- NOTE | 2022-06-26 09:43 | NUR ---
Attempted to call report,staff said they need to clarify who's taking report.
--- NOTE | 2022-06-26 10:03 | NUR ---
pt arrived on floor, alert and orientated, dialysis nurse at bedside, pt here to get dialysis and then to be discharged, no admit orders
[2022-06-26] MEDS: normal saline 1000ml 250 ML IV PRN ×2 (10:29→14:14)
[2022-06-26 11:16] VITALS: BP 138/89
--- NOTE | 2022-06-26 15:07 | NUR ---
amr at bedside, dialysis nurse assisting amr at this time for pt to go back to [facility]
== END | disposition home or self-care (01) ==
LOC: ER 08:20
DX: I13.11 Hypertensive heart and chronic kidney disease without heart failure, with stage 5 chronic kidney disease, or end stage renal disease (principal); E11.22 Type 2 diabetes mellitus with diabetic chronic kidney disease; N18.6 End stage renal disease; Z99.2 Dependence on renal dialysis; J44.9 Chronic obstructive pulmonary disease, unspecified; G47.30 Sleep apnea, unspecified; K21.9 Gastro-esophageal reflux disease without esophagitis; Z90.49 Acquired absence of other specified parts of digestive tract; Z88.8 Allergy status to other drugs, medicaments and biological substances; Z79.01 Long term (current) use of anticoagulants; Z79.899 Other long term (current) drug therapy; Z79.4 Long term (current) use of insulin
CPT/HCPCS: 96365; 96372; 99284; J1644; J3490; 99285; A6402; E1594

== ENCOUNTER 2023-01-12 11:02 | Emergency (ER) | payer MEDICARE, MEDICAID ==
[~2023-01-12] VITALS: Ht 152.4 cm; Wt 100.0 kg
[~2023-01-12 11:02] MED LIST changes: -EPOETIN ALFA-EPBX 20,000 UNIT/ML 1 ML MDV IV ONE; -LIDOcaine 1% (10mg/ml) 2ml vial SQ ONE; -heparin 1,000 units/ml 10ml inj HE ONE; -heparin 1,000 units/ml 10ml inj IV ONE; -heparin 1,000unit/ml 10ml vial 10 ML IV ONE; -normal saline 1000ml 250 ML IV PRN
[2023-01-12 12:04] LABS: BASOPHILS # (AUTO) 0.1 X10'3 (0-0.2); BASOPHILS % (AUTO) 1.2 % (0-1); EOSINOPHILS % (AUTO) 0.4 % (0-6); HEMATOCRIT 22.8 % (35.0-45.0); HEMOGLOBIN 7.2 g/dl (12.0-16.0); LYMPHOCYTES # (AUTO) 1.3 X10'3 (1.1-4.8); LYMPHOCYTES % (AUTO) 18.9 % (21-51); MEAN CORPUSCULAR HEMOGLOBIN 28.1 PG (27.0-31.0); MEAN CORPUSCULAR HGB CONC 31.8 g/dL (33.0-36.5); MEAN CORPUSCULAR VOLUME 88.4 FL (78-98); MEAN PLATELET VOLUME 8.8 FL (7.4-10.4); MONOCYTES # (AUTO) 0.2 X10'3 (0-0.9); MONOCYTES % (AUTO) 3.6 % (2-12); NEUTROPHILS % (AUTO) 75.9 % (42-75); PLATELET COUNT 166 X10'3 (140-440); RED BLOOD COUNT 2.57 X10'6 (4.20-5.60); RED CELL DISTRIBUTION WIDTH 18.2 % (11.5-14.5); WHITE BLOOD COUNT 6.6 X10'3 (4.5-11.0)
[2023-01-12 12:13] LABS: CHLORIDE 98 MMOL/L (99-107); GLUCOSE 220 MG/DL (70-104); POTASSIUM 3.5 MMOL/L (3.5-5.1); SODIUM 138 MMOL/L (135-145)
[2023-01-12 12:14] LABS: ALANINE AMINOTRANSFERASE 7 U/L (12-78); ALBUMIN 2.4 G/DL (3.4-5.0); ALBUMIN/GLOBULIN RATIO 0.6 (1.1-1.5); ALKALINE PHOSPHATASE 154 IU/L (46-116); ANION GAP 5 (8-16); ASPARTATE AMINO TRANSFERASE 6 U/L (10-37); BILIRUBIN,TOTAL 0.5 MG/DL (0.1-1.0); BLOOD UREA NITROGEN 11 MG/DL (7-18); BUN/CREATININE RATIO 3.9 (10.0-20.0); CREATININE 2.82 MG/DL (0.40-0.90); TOTAL CARBON DIOXIDE 34.7 MMOL/L (24-32); TOTAL PROTEIN 6.4 G/DL (6.4-8.2); eCRCL 14 ML/MIN; eGFR 17 ML/MIN
[2023-01-12] MEDS ORDERED: ondansetron 4mg rapidly disintigrating tab PO ONE (14:10)
[2023-01-12 15:41] VITALS: BP 101/58; PULSE 77; RESP 16; TEMP 98.1
[2023-01-12 15:56] VITALS: BP 111/68; PULSE 74; RESP 17; TEMP 97.5
[2023-01-12 16:56] VITALS: BP 115/71; PULSE 70; RESP 16; TEMP 97.5
[2023-01-12 17:02] VITALS: BP 114/71; PULSE 83; RESP 16; TEMP 97.6
[2023-01-12 17:43] VITALS: BP 118/71; PULSE 69; RESP 16; O2SAT 99
== END 2023-01-12 17:51 | disposition home or self-care (01) ==
LOC: ER 11:03
DX: D64.9 Anemia, unspecified (principal); N18.6 End stage renal disease; I13.0 Hypertensive heart and chronic kidney disease with heart failure and stage 1 through stage 4 chronic kidney disease, or unspecified chronic kidney disease; I50.9 Heart failure, unspecified; E11.22 Type 2 diabetes mellitus with diabetic chronic kidney disease; E78.00 Pure hypercholesterolemia, unspecified; J44.9 Chronic obstructive pulmonary disease, unspecified; K21.9 Gastro-esophageal reflux disease without esophagitis; Z88.8 Allergy status to other drugs, medicaments and biological substances; Z79.899 Other long term (current) drug therapy; Z98.890 Other specified postprocedural states
CPT/HCPCS: 36415; 36430; 80053; 85025; 86885; 86900; 86901; 86920; 99285; J7030; P9016

== ENCOUNTER 2023-01-16 10:14 | Outpatient (CLI) | payer MEDICARE, MEDICAID | END 2023-01-16 23:59 | disposition home or self-care (01) | LOC: LAB 10:14 | PROVIDERS: ATTEND Internal Medicine Critical Care Medicine | DX: N18.9 Chronic kidney disease, unspecified (principal); D63.1 Anemia in chronic kidney disease | CPT/HCPCS: 36415 ==

== ENCOUNTER 2023-01-24 14:52 | Inpatient (IN) | payer MEDICARE, MEDICAID ==
[~2023-01-24] VITALS: Ht 152.4 cm; Wt 91.8 kg
[2023-01-24] MEDS ORDERED: CefTRIAXone 2gm/D5W 50ml BAG 50 ML IV ONE (15:55)
[2023-01-24 17:08] LABS: BASOPHILS % (AUTO) 0.5 % (0-1); EOSINOPHILS # (AUTO) 0.1 X10'3 (0-0.9); LYMPHOCYTES % (AUTO) 17.3 % (21-51); MEAN CORPUSCULAR HEMOGLOBIN 27.4 PG (27.0-31.0); MEAN CORPUSCULAR HGB CONC 31.5 g/dL (33.0-36.5); MEAN CORPUSCULAR VOLUME 86.8 FL (78-98); MEAN PLATELET VOLUME 9.6 FL (7.4-10.4); MONOCYTES # (AUTO) 0.2 X10'3 (0-0.9); MONOCYTES % (AUTO) 4.4 % (2-12); NEUTROPHILS # (AUTO) 4.3 X10'3 (1.8-7.7); NEUTROPHILS % (AUTO) 76.8 % (42-75); PLATELET COUNT 126 X10'3 (140-440); RED BLOOD COUNT 2.51 X10'6 (4.20-5.60); RED CELL DISTRIBUTION WIDTH 17.6 % (11.5-14.5); WHITE BLOOD COUNT 5.6 X10'3 (4.5-11.0)
[2023-01-24 17:14] LABS: HEMATOCRIT 21.8 % (35.0-45.0); HEMOGLOBIN 6.9 g/dl (12.0-16.0)
[2023-01-24 17:29] LABS: ALANINE AMINOTRANSFERASE 7 U/L (12-78); ALBUMIN 2.5 G/DL (3.4-5.0); ALBUMIN/GLOBULIN RATIO 0.8 (1.1-1.5); ALKALINE PHOSPHATASE 159 IU/L (46-116); ANION GAP 5 (8-16); ASPARTATE AMINO TRANSFERASE 7 U/L (10-37); BILIRUBIN,TOTAL 0.5 MG/DL (0.1-1.0); BLOOD UREA NITROGEN 15 MG/DL (7-18); BUN/CREATININE RATIO 5.2 (10.0-20.0); CALCIUM 8.7 MG/DL (8.5-10.1); CHLORIDE 98 MMOL/L (99-107); GLUCOSE 109 MG/DL (70-104); MAGNESIUM 1.8 MG/DL (1.5-2.4); POTASSIUM 3.7 MMOL/L (3.5-5.1); SODIUM 138 MMOL/L (135-145); TOTAL CARBON DIOXIDE 35.1 MMOL/L (24-32); TOTAL PROTEIN 5.8 G/DL (6.4-8.2); eCRCL 14 ML/MIN; eGFR 16 ML/MIN
[2023-01-24] MEDS ORDERED: magnesium 4gm in 100ml NS 100 ML IV PRN (20:15)
[2023-01-24] MEDS ORDERED: potassium Cl 40MEQ/1/2NS 520ml 520 ML IV PRN (20:15)
[2023-01-24] MEDS ORDERED: glucagon, human recombinant 1mg kit SUBCUT PRN (20:15)
[2023-01-24] MEDS ORDERED: potassium Cl 20 mEq SR tablet PO PRN ×2 (20:15)
[2023-01-24] MEDS ORDERED: DEXTROSE 15 GM of carb/4 tabs (each vial/BOTTLE has 4 tablets) PO PRN ×2 (20:15)
[2023-01-24] MEDS ORDERED: MESSAGE TO PHARMACY PO ONE (20:15)
[2023-01-24] MEDS ORDERED: dextrose 50%-water 50ml dispensing syringe IV PRN ×2 (20:15)
[2023-01-24] MEDS ORDERED: insulin Lispro (HumaLOG) vial - multi-dose SQ SCH (20:15)
[2023-01-24] MEDS ORDERED: acetaminophen 325mg tablet PO PRN (20:15)
--- NOTE | 2023-01-24 20:15 | NUR ---
ED BED 14--DO YOU WANT ONE OR TWO UNITS OF BLOOD? [id number] PAGE SENT TO DR DAVIS
--- NOTE | 2023-01-24 20:16 | NUR ---
PER DR DAVIS GIVE TWO UNITS OF BLOOD
[2023-01-24] MEDS ORDERED: CefTRIAXone/D5W-Rocephin 1gm 50 ML IV ONE (20:40)
[2023-01-24 20:44] VITALS: BP 108/66; PULSE 70; RESP 16; TEMP 98.1
[2023-01-24] MEDS ORDERED: vancomycin/NS 1 GM ADD-VANTAGE 250 ML X 1 DOSE IV ONE (20:50)
[2023-01-24] MEDS ORDERED: vancomycin/NS 1 GM ADD-VANTAGE 250 ML X 1 DOSE IV PRN (20:50)
[2023-01-24 20:55] VITALS: BP 92/59; PULSE 73; RESP 16; TEMP 98.5
[2023-01-24] MEDS: insulin glargine (Lantus) pen - multi-dose SQ SCH (21:00)
[2023-01-24 21:10] VITALS: BP 103/59; PULSE 72; RESP 16; TEMP 98.5
[2023-01-24 21:38] VITALS: BP 103/61; PULSE 77; RESP 18; TEMP 98.5
[2023-01-24 22:00] VITALS: BP 110/61; PULSE 72; RESP 14; RESP 16; TEMP 98.4; O2SAT 98
[2023-01-25] VITALS (12 sets, daily range): BP systolic 85–130; BP diastolic 50–65; PULSE 54–89; RESP 16–19; TEMP 95–98.5; O2SAT 98–100
[2023-01-25] MEDS ORDERED: LEVO25TA2 PO (02:40)
[2023-01-25] MEDS ORDERED: CARV6.253 PO (02:40)
[2023-01-25] MEDS ORDERED: POTA-207 PO (03:12)
[2023-01-25] MEDS ORDERED: PANT-47 PO (03:12)
[2023-01-25] MEDS ORDERED: MIRT7.5T11 PO (03:12)
[2023-01-25] MEDS ORDERED: PENT400T17 PO (03:12)
[2023-01-25] MEDS ORDERED: DULO30CA52 PO (03:12)
[2023-01-25] MEDS ORDERED: DOCU100C33 PO (03:34)
[2023-01-25] MEDS ORDERED: ALBU18HF2 INH (03:34)
[2023-01-25] MEDS ORDERED: DICL20GE TOP (03:34)
[2023-01-25] MEDS ORDERED: ACET-1008 PO (03:34)
[2023-01-25] MEDS ORDERED: CYCL-1 PO (03:34)
[2023-01-25] MEDS ORDERED: NYSPWD TP (03:34)
[2023-01-25] MEDS ORDERED: ONDA4TAB12 PO (03:34)
[2023-01-25] MEDS ORDERED: INSU100I8 SQ (03:38)
[2023-01-25] MEDS ORDERED: cyclobenzaprine 10mg tablet PO PRN ×2 (04:25→05:02)
[2023-01-25] MEDS ORDERED: acetaminophen 325mg tablet PO PRN (04:25)
[2023-01-25] MEDS ORDERED: ondansetron 4mg rapidly disintigrating tab PO PRN (04:25)
[2023-01-25] MEDS ORDERED: docusate sod 100mg capsule PO PRN (04:25)
[2023-01-25] MEDS ORDERED: albuterol 2.5 MG/3 ML nebule NEB PRN (04:25)
[2023-01-25] MEDS ORDERED: nystatin 15 GM powder TP PRN (04:25)
[2023-01-25 06:19] LABS: BASOPHILS % (AUTO) 0.9 % (0-1); EOSINOPHILS # (AUTO) 0.1 X10'3 (0-0.9); EOSINOPHILS % (AUTO) 1.6 % (0-6); HEMATOCRIT 23.1 % (35.0-45.0); HEMOGLOBIN 7.6 g/dl (12.0-16.0); LYMPHOCYTES # (AUTO) 0.9 X10'3 (1.1-4.8); LYMPHOCYTES % (AUTO) 21.5 % (21-51); MEAN CORPUSCULAR HEMOGLOBIN 27.6 PG (27.0-31.0); MEAN CORPUSCULAR HGB CONC 32.8 g/dL (33.0-36.5); MEAN CORPUSCULAR VOLUME 84.3 FL (78-98); MEAN PLATELET VOLUME 9.2 FL (7.4-10.4); MONOCYTES # (AUTO) 0.1 X10'3 (0-0.9); MONOCYTES % (AUTO) 3.3 % (2-12); NEUTROPHILS % (AUTO) 72.7 % (42-75); PLATELET COUNT 111 X10'3 (140-440); RED BLOOD COUNT 2.74 X10'6 (4.20-5.60); RED CELL DISTRIBUTION WIDTH 18.2 % (11.5-14.5); WHITE BLOOD COUNT 4.2 X10'3 (4.5-11.0)
--- NOTE | 2023-01-25 06:21 | NUR ---
Problems reprioritized. Patient report given, questions answered & plan of care reviewed with Lisbeth PENA.
[2023-01-25 06:32] LABS: ALBUMIN 2.1 G/DL (3.4-5.0); ALBUMIN/GLOBULIN RATIO 0.7 (1.1-1.5); ALKALINE PHOSPHATASE 132 IU/L (46-116); ANION GAP 3 (8-16); ASPARTATE AMINO TRANSFERASE 6 U/L (10-37); BILIRUBIN,TOTAL 0.8 MG/DL (0.1-1.0); BLOOD UREA NITROGEN 18 MG/DL (7-18); BUN/CREATININE RATIO 5.6 (10.0-20.0); CALCIUM 8.4 MG/DL (8.5-10.1); CHLORIDE 101 MMOL/L (99-107); CREATININE 3.21 MG/DL (0.40-0.90); GLUCOSE 100 MG/DL (70-104); MAGNESIUM 1.6 MG/DL (1.5-2.4); POTASSIUM 3.7 MMOL/L (3.5-5.1); SODIUM 138 MMOL/L (135-145); TOTAL CARBON DIOXIDE 34.5 MMOL/L (24-32); TOTAL PROTEIN 5.3 G/DL (6.4-8.2); eCRCL 12 ML/MIN; eGFR 14 ML/MIN
[2023-01-25 06:34] LABS: ALANINE AMINOTRANSFERASE < 6 U/L (12-78)
--- NOTE | 2023-01-25 06:42 | NUR ---
Patient in room ORTHO 4009. I have received report from Davy vera and had the opportunity to ask questions and assume patient care.
[2023-01-25] MEDS ORDERED: levoTHYROXINE 25mcg tablet PO SCH (07:00)
[2023-01-25] MEDS: levoTHYROXINE 100mcg tablet PO SCH (07:27)
[2023-01-25] MEDS: K and/or MAG REPLACEMENT MC SCH ×2 (08:00→20:00)
[2023-01-25] MEDS ORDERED: CefTRIAXone/D5W-Rocephin 1gm 50 ML IV ONE (08:00)
[2023-01-25] MEDS: docusate sod 100mg capsule PO SCH ×2 (08:00→19:15)
[2023-01-25] MEDS ORDERED: carvedilol 6.25mg tablet PO SCH ×2 (08:00→17:00)
[2023-01-25] MEDS: furosemide 40mg tablet PO SCH ×2 (08:48→21:43)
[2023-01-25] MEDS: duloxetine 30mg CAPSULE.DR PO SCH (08:48)
[2023-01-25] MEDS: buPROPion SR 150mg tablet PO SCH (08:48)
[2023-01-25] MEDS: calcitriol 0.25mcg capsule PO SCH (08:48)
[2023-01-25] MEDS: pantoprazole 40mg Tablet.DR PO SCH ×2 (08:48→19:26)
[2023-01-25] MEDS: CefTRIAXone/D5W-Rocephin 1gm 50 ML IV SCH (08:50)
[2023-01-25 10:39] LABS: CHOLESTEROL 129 MG/DL (0-200); HDL CHOLESTEROL 32 MG/DL (35-60); HEMOGLOBIN A1C 6.4 % (4.5-6.2); LDL CHOLESTEROL 64 MG/DL (50-100); THYROID STIMULATING HORMONE 34.52 ulU/ml (0.34-4.50); TRIGLYCERIDES 180 MG/DL (20-135)
[2023-01-25] MEDS: ondansetron/PF 4mg/2ml inj IV PRN ×2 (10:49→21:43)
[2023-01-25] MEDS ORDERED: albumin (human) 25% 100ml IV 100 ML IV PRN (13:20)
[2023-01-25] MEDS ORDERED: EPOETIN ALFA-EPBX 20,000 UNIT/ML 1 ML MDV IV ONE (13:20)
[2023-01-25] MEDS ORDERED: heparin 1,000 units/ml 10ml inj HE ONE ×2 (13:25)
[2023-01-25] MEDS ORDERED: vancomycin/NS 1 GM ADD-VANTAGE 250 ML X 1 DOSE IV ONE (15:00)
--- NOTE | 2023-01-25 15:00 | NUR ---
Pt presents with ESRD needing dialysis and a left knee wound per EMR. Per RN physical assessment pt has a large bruise/ulcer present to upper left thigh and an abrasion/traumatic injury to left knee. Wound care has been consulted, pending [facility] note. Will continue to monitor. Addendum: 01/25/23 at [address] Amended: Links added.
--- NOTE | 2023-01-25 15:44 | NUR ---
PRESSURE ULCER EDUCATION: DEFINITION: A pressure ulcer is an area of skin that breaks down when you stay in one position too long. The constant pressure against the skin reduces the blood flow to that area and the affected tissue dies. CAUSES: "Being bedridden or in a wheelchair "Fragile skin "Having a chronic condition, such as diabetes or vascular disease "Inability to move certain parts of your body without assistance "Older age "Incontinence of urine or stool SYMPTOMS: "A reddened area that DOES NOT turn white when pressed on - this can be the beginning of a pressure ulcer "A blister, deep sore or a crater - these can be advanced pressure ulcers FIRST AID: "Relieve the pressure on this area "Keep the area clean and dry "Call your primary doctor if you see any of the above symptoms "DO NOT massage the area "DO NOT use a donut shaped or ring shaped pillow- these actually interfere with the blood flow and cause complications PREVENTION: "Check for pressure ulcers everyday "Change position at least every two hours to relieve pressure "Use items that help relieve pressure- pillows, sheepskin, foam padding, and powders. "Keep skin clean and dry "Eat healthy well balanced meals "Exercise daily IF YOU SEE ANY OF THESE SYMPTOMS WHILE IN THE HOSPITAL - TELL YOUR NURSE IMMEDIATELY. IF YOU SEE ANY OF THESE SYMPTOMS WHILE AT HOME OR HAVE ANY QUESTIONS OR CONCERNS ABOUT PRESSURE ULCERS - CALL YOUR PRIMARY DOCTOR IMMEDIATELY. Addendum: 01/25/23 at 1544 by Nuvia Quinones LVN Amended: Links added.
--- NOTE | 2023-01-25 16:17 | NUR ---
vanco to be given at 1900 tonight. RN talked with dialysis nurse and IV med cannot be run with dialysis and stated to retime vanco for tonight at 1900. RN spoke with pharmacist and made aware it will be scanned late and given at 1900.
[2023-01-25] MEDS: insulin glargine (Lantus) pen - multi-dose SQ SCH (21:00)
[2023-01-25] MEDS ORDERED: mirtazapine 15mg tablet PO SCH (21:00)
[2023-01-25] MEDS ORDERED: atorvastatin 20mg tablet PO SCH (21:00)
[2023-01-25] MEDS: nystatin 15 GM powder TP SCH (21:43)
[2023-01-26] MEDS ORDERED: VANCOMYCIN LEVEL IV SCH (03:00)
[2023-01-26 06:00] VITALS: BP 108/63; PULSE 80; RESP 15; TEMP 97.9; O2SAT 99
--- NOTE | 2023-01-26 06:27 | NUR ---
Problems reprioritized. Patient report given, questions answered & plan of care reviewed with Jose. Addendum: 01/26/23 at 0627 by Ashley Rodriguez RN Amended: Links added.
--- NOTE | 2023-01-26 06:38 | NUR ---
Patient in room ORTHO 4009. I have received report from JEAN Ramirez and had the opportunity to ask questions and assume patient care.
[2023-01-26 07:49] LABS: ALBUMIN 2.1 G/DL (3.4-5.0); ALBUMIN/GLOBULIN RATIO 0.6 (1.1-1.5); ALKALINE PHOSPHATASE 139 IU/L (46-116); ANION GAP 1 (8-16); ASPARTATE AMINO TRANSFERASE 6 U/L (10-37); BILIRUBIN,TOTAL 0.6 MG/DL (0.1-1.0); BLOOD UREA NITROGEN 14 MG/DL (7-18); BUN/CREATININE RATIO 5.3 (10.0-20.0); CALCIUM 8.8 MG/DL (8.5-10.1); CHLORIDE 104 MMOL/L (99-107); CREATININE 2.65 MG/DL (0.40-0.90); FERRITIN 590 NG/ML (8-252); GLUCOSE 104 MG/DL (70-104); MAGNESIUM 1.6 MG/DL (1.5-2.4); POTASSIUM 3.8 MMOL/L (3.5-5.1); SODIUM 138 MMOL/L (135-145); TOTAL CARBON DIOXIDE 32.6 MMOL/L (24-32); TOTAL PROTEIN 5.5 G/DL (6.4-8.2); eCRCL 15 ML/MIN; eGFR 18 ML/MIN
[2023-01-26 07:53] LABS: ALANINE AMINOTRANSFERASE < 6 U/L (12-78)
[2023-01-26] MEDS: K and/or MAG REPLACEMENT MC SCH (08:00)
[2023-01-26] MEDS ORDERED: carvedilol 6.25mg tablet PO SCH (08:00)
[2023-01-26] MEDS: nystatin 15 GM powder TP SCH (08:00)
[2023-01-26] MEDS: pantoprazole 40mg Tablet.DR PO SCH (08:05)
[2023-01-26] MEDS: calcitriol 0.25mcg capsule PO SCH (08:05)
[2023-01-26] MEDS: buPROPion SR 150mg tablet PO SCH (08:05)
[2023-01-26] MEDS: duloxetine 30mg CAPSULE.DR PO SCH (08:05)
[2023-01-26] MEDS: levoTHYROXINE 100mcg tablet PO SCH (08:05)
[2023-01-26] MEDS: CefTRIAXone/D5W-Rocephin 1gm 50 ML IV SCH (08:28)
[2023-01-26 08:51] LABS: ABSOLUTE RETICS # < 6000 /CUMM (23000-93000); BASOPHILS % (AUTO) 0.5 % (0-1); EOSINOPHILS # (AUTO) 0.1 X10'3 (0-0.9); EOSINOPHILS % (AUTO) 0.9 % (0-6); HEMATOCRIT 26.6 % (35.0-45.0); HEMOGLOBIN 8.7 g/dl (12.0-16.0); LYMPHOCYTES # (AUTO) 0.9 X10'3 (1.1-4.8); LYMPHOCYTES % (AUTO) 15.1 % (21-51); MEAN CORPUSCULAR HEMOGLOBIN 27.9 PG (27.0-31.0); MEAN CORPUSCULAR HGB CONC 32.6 g/dL (33.0-36.5); MEAN CORPUSCULAR VOLUME 85.7 FL (78-98); MEAN PLATELET VOLUME 9.3 FL (7.4-10.4); MONOCYTES # (AUTO) 0.2 X10'3 (0-0.9); MONOCYTES % (AUTO) 4.3 % (2-12); NEUTROPHILS # (AUTO) 4.5 X10'3 (1.8-7.7); NEUTROPHILS % (AUTO) 79.2 % (42-75); PLATELET COUNT 112 X10'3 (140-440); RED CELL DISTRIBUTION WIDTH 18.2 % (11.5-14.5); RETICULOCYTE % (AUTO) < 0.2 % (0.5-1.5); WHITE BLOOD COUNT 5.7 X10'3 (4.5-11.0)
[2023-01-26] MEDS ORDERED: cyclobenzaprine 10mg tablet PO PRN (09:05)
[2023-01-26] MEDS ORDERED: CEPH250T PO (11:09)
[2023-01-26] MEDS ORDERED: DULO30CA52 PO (11:09)
--- NOTE | 2023-01-26 11:16 | NUR ---
F/u 01/26: Per [facility] note, pt w/ abdomen blister and L knee/thigh prior hematoma site now dry. RD d/w RN regarding removal of carb controlled diet restriction given pt A1C 6.4% and Glu WNL this LOS if MD agreeable. Addendum: 01/26/23 at [address] Amended: Links added.
[2023-01-26 11:33] VITALS: PULSE 80; RESP 16; O2SAT 98
--- NOTE | 2023-01-26 13:00 | NUR ---
LITHOGRAPH PRESS OPERATOR documentation: I have reviewed and agree with all interventions, assessments performed and documented by Jose Chapin LVN.
--- NOTE | 2023-01-26 15:09 | NUR ---
Pt stable for discharge. Patient signed all discharge paperwork and IV was discontinued prior to discharge. [facility] personnel arrived to transport patient home. Patient was wheeled out via wheelchair by [facility] personnel and left in [facility] vehicle to go home. Patient was d/c at 1410
[2023-01-28 15:48] LABS: TRANSFERRIN 136 mg/dL (192-364)
== END 2023-01-26 14:10 | disposition home or self-care (01) | DRG 602 ==
LOC: ER 14:53 → ED HOLD 20:17 → EDBEDREQ 22:05 → ORTHO 4S 22:38
PROVIDERS: ADMIT Family Medicine; ATTEND Family Medicine
PROC: 30233N1 Transfusion of Nonautologous Red Blood Cells into Peripheral Vein, Percutaneous Approach (ICD-10-PCS; principal; 2023-01-24)
PROC: 5A1D70Z Performance of Urinary Filtration, Intermittent, Less than 6 Hours Per Day (ICD-10-PCS; 2023-01-25)
DX: L03.116 Cellulitis of left lower limb (principal); N18.6 End stage renal disease; I13.2 Hypertensive heart and chronic kidney disease with heart failure and with stage 5 chronic kidney disease, or end stage renal disease; J96.11 Chronic respiratory failure with hypoxia; I50.32 Chronic diastolic (congestive) heart failure; S80.02XA Contusion of left knee, initial encounter; I95.9 Hypotension, unspecified; J44.9 Chronic obstructive pulmonary disease, unspecified; E66.01 Morbid (severe) obesity due to excess calories; D63.1 Anemia in chronic kidney disease; K21.9 Gastro-esophageal reflux disease without esophagitis; W18.39XA Other fall on same level, initial encounter; E11.22 Type 2 diabetes mellitus with diabetic chronic kidney disease; E78.00 Pure hypercholesterolemia, unspecified; E89.0 Postprocedural hypothyroidism; G47.33 Obstructive sleep apnea (adult) (pediatric); Z79.84 Long term (current) use of oral hypoglycemic drugs; Z99.2 Dependence on renal dialysis; Z80.0 Family history of malignant neoplasm of digestive organs; Z82.49 Family history of ischemic heart disease and other diseases of the circulatory system; Z85.850 Personal history of malignant neoplasm of thyroid; Z90.49 Acquired absence of other specified parts of digestive tract; Z99.81 Dependence on supplemental oxygen; Z88.8 Allergy status to other drugs, medicaments and biological substances; Z79.899 Other long term (current) drug therapy; Z74.01 Bed confinement status; Z79.890 Hormone replacement therapy; Y93.89 Activity, other specified; Y92.89 Other specified places as the place of occurrence of the external cause; Y99.8 Other external cause status; Z68.39 Body mass index [BMI] 39.0-39.9, adult
CPT/HCPCS: 36415; 36430; 71045; 73560; 80053; 80061; 82728; 82948; 83036; 83605; 83735; 84145; 84443; 84466; 85025; 85045; 86885; 86900; 86901; 86920; 87040; 87081; 87340; 93005; 94660; 94760; 97161; 97530; 99285; A6209; G0378; J0696; J1815; J2405; J3370; J7040; P9016; Q4081

== ENCOUNTER 2023-03-04 07:14 | Day surgery (SDC) | payer MEDICARE, MEDICAID, OTHER ==
[~2023-03-04] VITALS: Ht 154.9 cm; Wt 82.0 kg
[~2023-03-04 07:14] MED LIST changes: +ACET-1008 PO; +ALBU18HF2 INH; -AMLO10TA13 PO; -APIX5TAB3 PO; -CARV12.5 PO; +CEPH250T PO; -CLON0.2T PO; +DICL20GE TOP; +DOCU100C33 PO; +DULO30CA52 PO; -FERR-106 PO; -HYDR-4069 PO; -INSU100I31 SQ; +LEVO25TA2 PO; -LEVO75TA PO; -LIRA0.6P2 SQ; -NOVLG SQ; +NYSPWD TP; -OMEP20CA16 PO; +ONDA4TAB12 PO; +PANT-47 PO; +PENT400T17 PO; +POTA-207 PO
[2023-03-04] MEDS ORDERED: normal saline 1000ml 1,000 ML IV PRN (07:45)
[2023-03-04 07:54] VITALS: BP 107/66; PULSE 95; RESP 18; TEMP 98.3; O2SAT 99
[2023-03-04 08:00] LABS: BASOPHILS % (AUTO) 0.6 % (0-1); EOSINOPHILS # (AUTO) 0.1 X10'3 (0-0.9); HEMOGLOBIN 8.2 g/dl (12.0-16.0); LYMPHOCYTES # (AUTO) 0.9 X10'3 (1.1-4.8); LYMPHOCYTES % (AUTO) 13.4 % (21-51); MEAN CORPUSCULAR HEMOGLOBIN 29.8 PG (27.0-31.0); MEAN CORPUSCULAR HGB CONC 31.3 g/dL (33.0-36.5); MONOCYTES # (AUTO) 0.4 X10'3 (0-0.9); MONOCYTES % (AUTO) 6.7 % (2-12); NEUTROPHILS # (AUTO) 5.1 X10'3 (1.8-7.7); NEUTROPHILS % (AUTO) 77.3 % (42-75); PLATELET COUNT 244 X10'3 (140-440); RED BLOOD COUNT 2.74 X10'6 (4.20-5.60); RED CELL DISTRIBUTION WIDTH 21.7 % (11.5-14.5); WHITE BLOOD COUNT 6.6 X10'3 (4.5-11.0)
[2023-03-04 08:08] LABS: PROTHROMBIN TIME 10.3 SECONDS (9.0-12.0)
[2023-03-04 08:09] LABS: ALBUMIN 2.6 G/DL (3.4-5.0); ANION GAP 8 (8-16); BLOOD UREA NITROGEN 53 MG/DL (7-18); CALCIUM 9.2 MG/DL (8.5-10.1); CHLORIDE 101 MMOL/L (99-107); CREATININE 4.43 MG/DL (0.40-0.90); GLUCOSE 106 MG/DL (70-104); POTASSIUM 5.6 MMOL/L (3.5-5.1); SODIUM 135 MMOL/L (135-145); TOTAL CARBON DIOXIDE 25.6 MMOL/L (24-32); eCRCL 9 ML/MIN; eGFR 10 ML/MIN
[2023-03-04] MEDS ORDERED: midazolam 1 mg/ML 2ml injection ONE (08:10)
[2023-03-04] MEDS ORDERED: fentaNYL/PF 50MCG/1 ML 2ML syringe ONE ×2 (08:10→09:23)
[2023-03-04] MEDS ORDERED: iohexol 300mg/ml 100ml inj. ONE (08:11)
[2023-03-04] MEDS ORDERED: LIDOcaine 1% 30ml preserv. free vial ONE (08:11)
[2023-03-04] MEDS ORDERED: heparin 1,000 UNITS/NS 500ml 500 ML ONE (08:11)
[2023-03-04] MEDS ORDERED: heparin 1,000unit/ml 10ml vial 10 ML ONE (09:04)
[2023-03-04 09:37] LABS: ANISOCYTOSIS 3+; ELLIPTOCYTES FEW; HYPOCHROMASIA 2+; PLATELET ESTIMATE NORMAL
[2023-03-04 09:49] VITALS: BP 122/96; PULSE 90; RESP 14; O2SAT 91
[2023-03-04 10:00] VITALS: BP 133/73; PULSE 88; RESP 14; O2SAT 91
[2023-03-04 10:01] LABS: LARGE PLATELETS FEW; STOMATOCYTES FEW
[2023-03-04 10:15] VITALS: BP 114/63; PULSE 72; RESP 14; O2SAT 91
[2023-03-04 10:30] VITALS: BP 85/53; PULSE 89; RESP 14; O2SAT 91
[2023-03-04 10:45] VITALS: BP 104/71; PULSE 89; RESP 14; O2SAT 95
== END 2023-03-04 10:55 | disposition home or self-care (01) ==
LOC: SSTAY O 07:14
PROVIDERS: ATTEND Radiology Vascular & Interventional Radiology
DX: T82.858A Stenosis of other vascular prosthetic devices, implants and grafts, initial encounter (principal); N18.6 End stage renal disease; Z88.8 Allergy status to other drugs, medicaments and biological substances; Z79.899 Other long term (current) drug therapy; Z98.890 Other specified postprocedural states; Z80.0 Family history of malignant neoplasm of digestive organs; Z82.49 Family history of ischemic heart disease and other diseases of the circulatory system; Y83.2 Surgical operation with anastomosis, bypass or graft as the cause of abnormal reaction of the patient, or of later complication, without mention of misadventure at the time of the procedure; Y92.89 Other specified places as the place of occurrence of the external cause
CPT/HCPCS: 36415; 36901; 36907; 80048; 85025; 85610; 99152; 99153; C1725; C1769; J1644; J2250; J3010; J3490; J7030; Q9967; 85008; A4620; A9270; C1894